=== PATIENT | female | born 1975 | race Caucasian/White ===

== ENCOUNTER 2016-07-05 11:47 | Inpatient (IN) | payer OTHER ==
[~2016-07-05] VITALS: Ht 157.5 cm; Wt 70.6 kg
[2016-07-05] VITALS (8 sets, daily range): BP systolic 108–121; BP diastolic 70–78; PULSE 72–102; RESP 14–18; TEMP 98.1; O2SAT 94–99
[~2016-07-05 11:47] MED LIST: DULO30 PO; HYDR-3535 PO; LEVO50TA4 PO; LURA120T PO; LYRI200C PO; MYCO500 PO; OXYB5TAB33 PO; PILO5 PO; RIVA20 PO
[2016-07-05] MEDS ORDERED: SODIUM CHLOR 0.9% 1000 ML INJ 1,000 ML IV SCH (12:09)
[2016-07-05] MEDS ORDERED: NALOXONE HCL 2 MG/2 ML VIAL IV ONE (12:15)
[2016-07-05] MEDS ORDERED: THIAMINE INJ 100 MG in SODIUM CHLORIDE 0.9% INJ 100 ML IV ONE (12:15)
[2016-07-05] MEDS ORDERED: DEXTROSE 50% IN WATER 50 ML VIAL(D50) IV PUSH ONE (12:15)
[2016-07-05] MEDS ORDERED: SODIUM CHLORIDE 0.9% FLUSH 10 ML FLUSH IVF PRN (12:15)
--- NOTE | 2016-07-05 12:31 | RADRPT ---
EXAM DATE/TIME: 07/05/2016 12:08 [place] COMPARISON: CHEST SINGLE AP, October 03, 2015, 15:56. INDICATIONS : Shortness of breath. MEDICAL HISTORY : Hypertension. Lupus. SURGICAL HISTORY : Port placement. ENCOUNTER: Initial ACUITY: 1 day PAIN SCORE: Non-responsive. LOCATION: Bilateral chest FINDINGS: A single view of the chest demonstrates hypoaerated without evidence of mass, infiltrate or effusion. Right-sided portacatheter unchanged. The cardiomediastinal contours are unremarkable. Osseous stru ctures are intact. CONCLUSION: No acute disease. Edu Lozano MD on July 05, 2016 at 12:28 Board Certified Radiologist. This report was verified electronically.
[2016-07-05 12:34] LABS: BLOOD GAS BASE EXCESS -3.1 mmol/L (-2-2); BLOOD GAS HCO3 22 mmol/L (22-26); BLOOD GAS METHEMOGLOBIN 0.7 % (0-2); BLOOD GAS O2 HGB SATURATION 96 % (90-100); BLOOD GAS OXYGEN CONTENT 17.6 Vol % (12.0-20.0); BLOOD GAS PCO2 40 mmHg (38-42); BLOOD GAS PO2 99 mmHG (61-120); CRITICAL VALUE NO; TEMP CORR TO 98.6
[2016-07-05 12:35] LABS: DRAW SITE RT RADIAL; LITER FLOW 2 L/M; NUMBER OF ARTERIAL PUNCTURES 1; OXYGEN DEVICE NASAL CANNULA; STAT NO; ULNAR PULSE PRESENT
--- NOTE | 2016-07-05 12:46 | PD ---
HPI Chief Complaint: Altered Mental Status Time Seen by Provider: 11:54 Travel History International Travel<30 days: No Contact w/Intl Traveler<30days: No Traveled to known affect area: No History of Present Illness HPI 40-year-old female arrives to the ER by EMS. She was found unresponsive at her residence. She evidently overdosed on Xanax and opioid analgesics taking an unknown quantity of pills over unknown period of time. EMS notes a GCS of 13. The respiratory rate was 10 with a carbon dioxide of 35, heart rate 98, blood pressure 105/64 blood sugar at 72 with an O2 sat of 93% on room air which improved to 99% on 2 L. The patient doesn't answer questions however she opens eyes to gentle noxious stimulus. 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) Bipolar Disorder: Yes Anxiety: No Depression: No Heart Rhythm Problems: Yes (TACHYCARDIA) Cancer: No Cardiovascular Problems: Yes High Cholesterol: Yes (HX OF) Chemotherapy: Yes (CYTOXIN 3-4 TX FINISHED FOR LUPUS) Chest Pain: No Congestive Heart Failure: No COPD: No Cerebrovascular Accident: Yes (LAST STROKE WAS 2006) Diabetes: No Diminished Hearing: No Deep Vein Thrombosis: Yes (LLE) Endocrine: Yes Gastrointestinal Disorders: Yes GERD: Yes Genitourinary: Yes Headaches: Yes Hepatitis: No Hiatal Hernia: No Hypertension: No Immune Disorder: Yes (LUPUS) Implanted Vascular Access Dvce: Yes Kidney Stones: Yes Medical other: Yes (STROKE) Musculoskeletal: Yes (FIBROMYALGIA, OSTEOPENIA) Neurologic: Yes (LEFT SIDED DEFICITS FROM PREVIOUS STROKE) Psychiatric: Yes (BI-POLAR) Reproductive: No Respiratory: Yes (PE) Immunizations Current: Yes Migraines: No Myocardial Infarction: No Radiation Therapy: No Renal Failure: Yes (STAGE 3 RENAL DISEASE BL) Seizures: No Sleep Apnea: No Thyroid Disease: Yes (HYPOTHYROIDSM ) Ulcer: No PNEUMOCCOCAL Vaccine (Year): 3 ?: Not Menopausal: Yes : 1 Para: 1 Tubal Ligation: Yes (2005) Past Surgical History Abdominal Surgery: Yes (APPENDECTOMY ) AICD: No Appendectomy: Yes Arteriovenous Shunt: No Body Medical Devices: [id number] Cardiac Surgery: No Section: Yes (1995) Cholecystectomy: No Ear Surgery: No Endocrine Surgery: No Eye Surgery: No Genitourinary Surgery: No Gynecologic Surgery: Yes (RIGHT OVARY REMOVAL, C SECTION) Insulin Pump: No Joint Replacement: No Neurologic Surgery: No Oral Surgery: No Pacemaker: No Thoracic Surgery: No Other Surgery: Yes (PORT PLACED AND REMOVED, new port placed 2012.) Social History Alcohol Use: Yes (SOCIALLY) Tobacco Use: No Substance Use: No Allergies-Medications (Allergen,Severity, Reaction): Coded Allergies: Erythromycin (Verified Allergy, Severe, THROAT CLOSES AND RASH, 07/05/16) Penicillin (Verified Allergy, Severe, THROAT CLOSES ,SWELLING, 07/05/16) Sulfa (Verified Allergy, Severe, Swelling, RASH, 07/05/16) Baclofen (Verified Allergy, Intermediate, SLURRED SPEECH, 07/05/16) Keflex (Verified Adverse Reaction, Severe, WEAKNESS, 07/05/16) Reported Meds & Prescriptions Reported Meds & Active Scripts Active Reported Lortab (Hydrocodone-Acetaminophen) 10-325 Mg Tab 1 Tab PO BID PRN Aspirin Adult Low Strength (Aspirin) 81 Mg Tabdr 81 Mg PO DAILY Alprazolam 0.25 Mg Tab 0.25 Mg PO BID PRN Mycophenolate (Mycophenolate Mofetil) 500 Mg Tab 500 Mg PO BID Iron (Ferrous Sulfate) 325 Mg Tab 325 Mg PO DAILY Citracal + D3 Maximum (Calcium Citrate-Vitamin D) 315-250 Mg-Unit Tab 1-2 Tab PO BID Lyrica (Pregabalin) 200 Mg Cap 200 Mg PO TID Pilocarpine 5 Mg Tab 5 Mg PO TID Levothyroxine (Levothyroxine Sodium) 50 Mcg Tab 50 Mcg PO MOTUWETHFRSA Take 1 tablet (50mcg) daily Thursday thru Thursday Voltaren Topical (Diclofenac Topical) 1% Gel 1 Applic TOPICAL QID PRN Potassium Chloride ER (Potassium Chloride) 10 Meq Tab 10 Meq PO TID Cymbalta DR (Duloxetine HCl) 30 Mg Capdr 90 Mg PO DAILY Ditropan (Oxybutynin Chloride) 5 Mg Tab 5 Mg PO TID PRN Seroquel (Quetiapine Fumarate) 25 Mg Tab 25 Mg PO HS Xarelto (Rivaroxaban) 20 Mg Tab 20 Mg PO DAILY Review of Systems ROS Limitations: Clinical Condition Physical Exam Narrative GENERAL: 40-year-old female well-nourished well-developed, minimally responsive , GCS is 10 (motor 6, eyes 3, verbal 1) SKIN: Focused skin assessment warm/dry. HEAD: Atraumatic. Normocephalic. EYES: Pupils are 4 mm. They're reactive to light.. ENT: No nasal bleeding or discharge. Mucous membranes pink and moist. NECK: Trachea midline. No JVD. CARDIOVASCULAR: Regular rate and rhythm. No murmur appreciated. RESPIRATORY: No accessory muscle use. Clear to auscultation. Breath sounds equal bilaterally. GASTROINTESTINAL: Abdomen soft, non-tender, nondistended. Hepatic and splenic margins not palpable. MUSCULOSKELETAL: No obvious deformities. No clubbing. No cyanosis. There is contraction deformity of the left upper extremity at the shoulder and elbow. NEUROLOGICAL: GCS 10. Left-sided weakness is observed on cranial nerve exam. There is also weakness in the left upper extremities due to old stroke. PSYCHIATRIC: Unclear if the patient overdosed as a suicide attempt as she does not answer questions. Data Data Last Documented VS Vital Signs Date Time Temp Pulse Resp B/P Pulse Ox O2 Delivery O2 Flow Rate FiO2 07/05/16 12:35 94 16 109/78 97 Nasal Cannula 2 07/05/16 12:01 98.1 Vital signs reviewed Orders Electrocardiogram (07/05/16 12:09) Ammonia (07/05/16 12:09) Complete Blood Count With Diff (07/05/16 12:09) Comprehensive Metabolic Panel (07/05/16 12:09) Thyroid Stimulating Hormone (07/05/16 12:09) Arterial Blood Gas (Abg) (07/05/16 12:09) Chest, Single Ap (07/05/16 12:09) Blood Glucose (07/05/16 12:09) Ecg Monitoring (07/05/16 12:09) Iv Access Insert/Monitor (07/05/16 12:09) Cath For Specimen (07/05/16 12:09) Oximetry (07/05/16 12:09) Dextrose 50% In Jermaine (Vial) Inj (D50w (Vi (07/05/16 12:15) Naloxone Inj (Narcan Inj) (07/05/16 12:15) Sodium Chloride 0.9% Flush (Ns Flush) (07/05/16 12:15) Sodium Chlor 0.9% 1000 Ml Inj (Ns 1000 M (07/05/16 12:09) Thiamine Inj (Thiamine Inj) (07/05/16 12:15) Drug Screen, Random Urine (07/05/16 12:09) Alcohol (Ethanol) (07/05/16 12:09) Salicylates (Aspirin) (07/05/16 12:09) Tylenol (Acetaminophen) (07/05/16 12:09) Labs Laboratory Tests Test 07/05/16 07/05/16 07/05/16 07/05/16 12:24 12:40 13:00 13:40 Blood Gas Puncture Site RT RADIAL Blood Gas Patient Temperature 98.6 Blood Gas HCO3 22 mmol/L Blood Gas Base Excess -3.1 mmol/L Blood Gas Oxygen Saturation 96 % Arterial Blood pH 7.35 Arterial Blood Partial 40 mmHg Pressure CO2 Arterial Blood Partial 99 mmHG Pressure O2 Arterial Blood Oxygen Content 17.6 Vol % Arterial Blood 1.0 % Carboxyhemoglobin Arterial Blood Methemoglobin 0.7 % Blood Gas Hemoglobin 13.0 G/DL Oxygen Delivery Device NASAL CANNULA Blood Gas Liter Flow 2 L/M White Blood Count 4.6 TH/MM3 Red Blood Count 4.54 MIL/MM3 Hemoglobin 13.2 GM/DL Hematocrit 39.9 % Mean Corpuscular Volume 87.9 FL Mean Corpuscular Hemoglobin 29.0 PG Mean Corpuscular Hemoglobin 33.0 % Concent Red Cell Distribution Width 13.6 % Platelet Count 204 TH/MM3 Mean Platelet Volume 8.6 FL Neutrophils (%) (Auto) 74.0 % Lymphocytes (%) (Auto) 20.0 % Monocytes (%) (Auto) 5.1 % Eosinophils (%) (Auto) 0.2 % Basophils (%) (Auto) 0.7 % Neutrophils # (Auto) 3.4 TH/MM3 Lymphocytes # (Auto) 0.9 TH/MM3 Monocytes # (Auto) 0.2 TH/MM3 Eosinophils # (Auto) 0.0 TH/MM3 Basophils # (Auto) 0.0 TH/MM3 CBC Comment DIFF FINAL Differential Comment Sodium Level 139 MEQ/L Potassium Level 4.1 MEQ/L Chloride Level 105 MEQ/L Carbon Dioxide Level 23.4 MEQ/L Anion Gap 11 MEQ/L Blood Urea Nitrogen 13 MG/DL Creatinine 1.26 MG/DL Estimat Glomerular Filtration 47 ML/MIN Rate Random Glucose 76 MG/DL Calcium Level 9.7 MG/DL Total Bilirubin 0.7 MG/DL Aspartate Amino Transf 14 U/L (AST/SGOT) Alanine Aminotransferase 15 U/L (ALT/SGPT) Alkaline Phosphatase 74 U/L Total Protein 8.0 GM/DL Albumin 4.2 GM/DL Thyroid Stimulating Hormone 0.738 uIU/ML 3rd Gen Salicylates Level LESS THAN 1.7 MG/DL Acetaminophen Level LESS THAN 2.0 MCG/ML Ethyl Alcohol Level LESS THAN 3 MG/DL Urine Opiates Screen POS Urine Barbiturates Screen NEG Urine Amphetamines Screen NEG Urine Benzodiazepines Screen POS Urine Cocaine Screen NEG Urine Cannabinoids Screen NEG Ammonia 15 MCMOL/L MDM Medical Decision Making Medical Screen Exam Complete: Yes Emergency Medical Condition: Yes Medical Record Reviewed: Yes Differential Diagnosis Altered mental status/psychosis due to infection/environmental exposure/ metabolic abnormality, polypharmacy, alcohol abuse/intoxication, illicit or prescribed drug abuse, malingering/secondary gain, non-organic psychiatric disease Narrative Course CBC & BMP Diagram 07/05/16 12:40 LFTs normal Ammonia 15 TSH 0.7388 UTOX: positive for opiates, positive for benzodiazepines AB.35/40/22 abg PO2 100 on 2LNC The nurse reports the patient has been speaking at various times throughout her ER course. At time she has her eyes open and closes them when someone enters the room. The sitter reported same thing. Upon speaking with the patient at 2: 50 PM her speech was normal and she stated she was unsure where she was. Pt stated to sitter she did not know where she was. Her airway has been patent throughout her ER stay and her vital signs have been normal. The presentation is considered compatible with a benzodiazepine and opioid mixed toxidrome. Diagnosis Primary Impression: Benzodiazepine overdose of undetermined intent Qualified Code: T42.4X4A - Benzodiazepine overdose of undetermined intent, initial encounter Additional Impression: Opioid overdose Qualified Code: T40.2X4A - Opioid overdose, undetermined intent, initial encounter Sanket Bunn MD July 05, 2016 12:45
[2016-07-05] MEDS ORDERED: OXYB5TAB10 PO (13:12)
[2016-07-05] MEDS ORDERED: LYRI200C PO (13:12)
[2016-07-05] MEDS ORDERED: PILO5TAB3 PO (13:12)
[2016-07-05] MEDS ORDERED: CYMB30CA PO (13:12)
[2016-07-05] MEDS ORDERED: ASPI1TAB91 PO (13:12)
[2016-07-05] MEDS ORDERED: HYDR-3535 PO (13:12)
[2016-07-05] MEDS ORDERED: FERR1TAB36 PO (13:12)
[2016-07-05] MEDS ORDERED: DICL1GEL TOPICAL (13:12)
[2016-07-05] MEDS ORDERED: SERO25TA PO (13:12)
[2016-07-05] MEDS ORDERED: ALPR0.25 PO (13:12)
[2016-07-05] MEDS ORDERED: POTA10TA2 PO (13:12)
[2016-07-05] MEDS ORDERED: XARE20TA PO (13:12)
[2016-07-05] MEDS ORDERED: CITRTAB7 PO (13:12)
[2016-07-05] MEDS ORDERED: MYCO500T PO (13:12)
[2016-07-05] MEDS ORDERED: LEVO50TA4 PO (13:12)
[2016-07-05 13:15] LABS: AUTOMATED NEUTROPHIL # 3.4 TH/MM3 (1.8-7.7); BASOPHIL % 0.7 % (0.0-2.0); EOSINOPHIL % 0.2 % (0.0-4.0); HEMATOCRIT 39.9 % (35.0-46.0); HEMO FLAGS DIFF FINAL; LYMPHOCYTE # 0.9 TH/MM3 (1.0-4.8); MEAN CELL VOLUME 87.9 FL (80.0-100.0); MONO % 5.1 % (0.0-8.0); PLATELET COUNT 204 TH/MM3 (150-450); RED BLOOD COUNT 4.54 MIL/MM3 (4.00-5.30); RED CELL DISTRIBUTION WIDTH 13.6 % (11.6-17.2); WHITE BLOOD COUNT 4.6 TH/MM3 (4.0-11.0)
[2016-07-05 13:19] LABS: AMPHETAMINE, URINE NEG (NEG); BARBITURATES, URINE NEG (NEG); COCAINE, URINE NEG (NEG)
[2016-07-05 13:22] LABS: ACETAMINOPHEN LESS THAN 2.0 MCG/ML (10.0-30.0); ALT (GPT) 15 U/L (10-53); ANION GAP 11 MEQ/L (5-15); AST (GOT) 14 U/L (15-37); BICARBONATE 23.4 MEQ/L (21.0-32.0); BLOOD UREA NITROGEN 13 MG/DL (7-18); CHLORIDE 105 MEQ/L (98-107); GLOMERULAR FILTRATION RATE 47 ML/MIN (>89); POTASSIUM 4.1 MEQ/L (3.5-5.1); SODIUM (NA) 139 MEQ/L (136-145)
[2016-07-05 13:31] LABS: ALKALINE PHOSPHATASE 74 U/L (45-117); TOTAL BILIRUBIN ADULT 0.7 MG/DL (0.2-1.0)
[2016-07-06 00:26] VITALS: BP 112/78; PULSE 79; RESP 16; O2SAT 95
[2016-07-06 02:26] VITALS: BP 141/78; PULSE 66; RESP 16; O2SAT 100
[2016-07-06 06:26] VITALS: BP 120/82; PULSE 77; RESP 18; O2SAT 97
[2016-07-06] MEDS ORDERED: MAGNESIUM HYDROXIDE SUSP 30 ML CUP PO PRN (13:15)
[2016-07-06] MEDS ORDERED: LORazepam 2 MG/ML VIAL - age > 65 yrs IM PRN (13:15)
[2016-07-06] MEDS ORDERED: LORazepam 0.5 MG TAB age > 65 yrs PO PRN (13:15)
[2016-07-06] MEDS ORDERED: ALUMINUM/MAGNESIUM/SIMETH 30 ML CUP PO PRN (13:15)
[2016-07-06] MEDS ORDERED: OXYBUTYNIN CHLORIDE 5 MG TAB PO PRN (13:30)
[2016-07-06] MEDS: NICOTINE 21 MG/24 HR PATCH T-DERMAL SCH (14:00)
--- NOTE | 2016-07-06 14:03 | MH ---
cc: JJJOSHUAROBERTA DATE OF ADMISSION: 07/06/2016 PRESENTING CHIEF COMPLAINT AND HISTORY OF PRESENT ILLNESS: This 40-year-old white female was brought to the emergency room this hospital under the [place] Act because of suspected overdose on Xanax and Lortab. She reportedly was found unresponsive at her residence. When evaluated the emergency room, she did not respond to questions. In the emergency room, she was evaluated by psychiatric screener and the case was discussed with me and it was felt she needed to be hospitalized for further assessment treatment. According to the psychiatric screener, she recently learned that her was having an extramarital affair and had recently moved out of the home. She got upset and overdosed on an unknown quantity of Xanax and opiates, i.e., hydrocodone. During this evaluation however, she denied entertaining any suicidal thoughts even though she had written notes to some family members / friends indicative of her desire to . She stated that she took only "a couple of Xanax and one pain pill" and denied this was a suicide attempt. She claimed that her mother who lives in [place] was the person who probably called her . She stated that she has a 20-year-old disabled daughter who lives with her. She also indicated that her 's new girlfriend had texted her stating that she needed to find a new hobby and to leave her alone. She stated that she had been to her , a precinct i police sergeant for the [employer], and everything between then changed since she had a stroke in 2006. During this evaluation, she also denied any previous suicide attempt. Prior to the evaluation, the case was discussed with the nursing staff on the unit who indicated that since admission she has been calm and cooperative though very focused on discharge and questioning the necessity of the [place] Act. She has not exhibited any aggressive or self-destructive behavior nor has she made any threats of harm to self or others since admission. At the time of this evaluation, Ms. Santiago was in a wheelchair and looked depressed. When asked about her understanding of the reason for this hospitalization, she responded "my is having an affair. We've been for 15 years. Things between us changed when I had the stroke ten years ago. Since then, he has become more of a caregiver than a . I did not overdose. I took maybe two or three Xanax 0.25 milligrams and one pain pill". She was unable to tell as to who brought her to the hospital. She acknowledged that she "passed out". She however repeatedly denied this was a suicide attempt. She denied any previous suicide attempts. She acknowledged feeling "kind of depressed" for the past two months. She denied any disturbance in her sleep but indicated her appetite had declined. She also indicated that since the stroke her memory and concentration had declined. On further direct questioning, she did not give any history suggestive of bipolar affective disorder. Further exploration revealed that she has been living with a 20-year-old daughter with cerebral palsy. They both have a PRODUCTION SPECIALIST assisting them with their activities of daily living. PAST PSYCHIATRIC HISTORY: She was first evaluated by a psychiatrist, Dr. Santillan, at [facility] about ten years or so ago for what she described as "depression." She was tried on several medications including Abilify, Latuda, et cetera. She stated the current medication, Cymbalta, is working well. Currently she is under the care of Dr. Pope. She was previously admitted to the psychiatric unit of [facility] about six years or so ago. That admission according to her was also precipitated by her feeling "depressed". PAST MEDICAL HISTORY: 1. She denied any history of diabetes, head injury or seizures. 2. She has a history of rheumatoid arthritis. 3. Lupus. 4. Status post cerebrovascular accident probably secondary to clotting state from the lupus. 5. History of tachycardia. 6. Hyperlipidemia. 7. She had recently finished chemotherapy with Cytoxan for lupus. 8. She has a history of deep venous thrombosis. 9. Gastroesophageal reflux disease (GERD). 10. Kidney stones. 11. Fibromyalgia. 12. Osteopenia. 13. Stage III renal disease. 14. Hypothyroidism. PAST SURGICAL HISTORY: 1. Appendectomy. 2. Lithotripsy. 3. section. ALLERGIES: 1. ERYTHROMYCIN. 2. PENICILLIN. 3. SULFA. 4. BACLOFEN. 5. KEFLEX. CURRENT MEDICATIONS: 1. Lortab 10/325 milligrams one tablet twice a day PRN. 2. Aspirin 81 milligrams daily. 3. Xanax 0.25 milligrams p.o. twice a day PRN. 4. Mycophenolate 500 milligrams twice a day. 5. Ferrous sulfate 325 milligrams daily. 6. Citracal plus D3 315 one to two tablets twice a day. 7. Lyrica 200 milligrams p.o. three times a day. 8. Pilocarpine 5 milligrams p.o. three times a day. 9. Synthroid 50 micrograms daily. 10. Voltaren Cream twice a day. 11. Potassium chloride 10 milligrams p.o. three times a day. The patient could not explain as to why she is taking the potassium. 12. Cymbalta 90 milligrams p.o. daily. 13. Ditropan 5 milligrams p.o. three times a day PRN. 14. Seroquel 25 milligrams at bedtime. 15. Xarelto 20 milligrams p.o. daily. FAMILY HISTORY: Her biological father when she was young. The mother remarried and the step-father when she was 11 years old. She has three brothers. No sisters. She denied any family history of psychiatric illness or substance abuse. PERSONAL AND SOCIAL HISTORY: She grew up in [place] and after finishing high school, attended two years of college. 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 She has been once to her current for 15 years. Her works as a precinct i police sergeant for the [employer]. As mentioned she has a 20-year-old daughter living with her who suffers from cerebral palsy. She denied any history of alcohol or drug abuse. She denied any history of physical or sexual trauma. She denied any history of involvement with the law. CLINICAL OBSERVATION AND MENTAL STATUS EXAMINATION: At the time of this evaluation, Ms. Santiago presented as a casually dressed reasonably well-groomed white female who looked her stated age. She was in a wheelchair. Overall cooperative, though very focused on discharge frequently emphasizing that her overdose was not a suicide attempt and that she engaged in his behavior out of anger and frustration. She insisted on discharge and repeatedly stating that her will be able to take care of her as he still comes around the house and takes care of her. In addition, she stated that there is a PRODUCTION SPECIALIST at home who can take care of her. She became tearful while describing her current state of affairs with her . She frequently stated that they have received marriage counseling in addition to her getting individual psychotherapy at [facility] and that outpatient services would be better for her. Speech: Coherent and appropriate.. Affect: Somewhat depressed, constricted. Subjectively she described her mood as, "I've been feeling depressed." Thought processes did not reveal any looseness of association or flight of ideas. No hong delusions, auditory or visual hallucinations were noticed or reported. As mentioned, she repeatedly denied any suicidal or homicidal ideations or intent at this time, "what I did was stupid. I didn't mean to hurt myself. I was just upset." She denied any previous suicide attempts. Cognitive functions: She was alert, oriented to place, person and situation. Memory: Immediate: She could do four digits forward, three digits backward. Recent: She could recall only one out of three objects after ten minutes. Remote: She could recall presidents up to President Marc Neal. Her attention and concentration was impaired. She could not do serial sevens at all. Her insight and judgment was felt to be fair. REVIEW OF SYSTEMS AND PHYSICAL EXAMINATION: not done as this has been done in the emergency room. She has left hemiparesis. DIAGNOSTIC IMPRESSION: AXIS I: Adjustment reaction with mixed emotional features. Possible dysthymic disorder. Status post overdose on Xanax and opiates. AXIS II: No diagnosis. AXIS III: Fibromyalgia and systemic lupus erythematosus, status post cerebrovascular accident resulting in his left hemiparesis, stage III renal disease, hypothyroidism, hyperlipidemia, history of deep vein thrombosis AXIS IV: Severity of psychosocial stressors, moderate, i.e., multiple medical issues, marital discord, daughter's disability. AXIS V: Current GAF score 40. FORMULATION AND TREATMENT PLAN: Based on this evaluation and the background information available to me at this time, Ms. Santiago is experiencing emotional distress due to the above-identified psychosocial stressors. In addition, she has experienced bouts of depression off and on. Currently she is experiencing a mild to moderate degree of depression compounded by the above-identified psychosocial stressors. As such, she will be maintained on the Cymbalta. The above-mentioned issues will be further explored and addressed in individual psychotherapy sessions. She will participate in various other unit activities i.e. occupational therapy, recreational therapy, group therapy. Medical consult will be requested for assistance in the management of her medical problems. It is not clear as to why she is taking the potassium supplements, and as such, this will be put on hold pending input from the manager medical device. Development Lead will be asked to assist in discharge planning. Her identified problems are: 1. Depression. 2. Current psychosocial stressors. Her assets are: She is verbal. Her estimated length of stay is three to five days. MD LISSETTE Dominguez/ADAM /1:08 PM /1:43 PM
[2016-07-06 14:14] VITALS: BP 113/77; PULSE 100; RESP 16; O2SAT 100
--- NOTE | 2016-07-06 15:01 | EKG ---
Date Performed: 07/05/2016 Time Performed: 12:12:13 PTAGE: 40 years EKG: Sinus rhythm MARKED RIGHT AXIS DEVIATION NONSPECIFIC T-WAVE ABNORMALITY Patient has an S1 Q3 T3 pattern, which is consistant with Pulmonary embolous. Clinical corrolation would be advised. When compared to previous tracing, there has been an increase in The anterolateral ST-T wave changes and a rightward shift in [place]. ABNORMAL ECG PREVIOUS TRACING : 10/03/2015 22.16 DOCTOR: Rose Yeh Interpretating Date/Time 07/06/2016 15:00:03
--- NOTE | 2016-07-06 17:31 | PD.CONS ---
HPI Service [facility] Hospitalists Consult Requested By Dr. 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 Patient is now admitted to the psychiatric unit of [facility] for overdose. Medical team as consult to to assist with chronic medical illnesses. Review of Systems Constitutional: DENIES: Diaphoretic episodes, Fatigue, Fever, Weight gain, Weight loss, Chills, Dizziness, Change in appetite, Night Sweats Endocrine: DENIES: Abnorml menstrual pattern, Heat/cold intolerance, Polydipsia , Polyuria, Polyphagia Eyes: DENIES: Blurred vision, Diplopia, Eye inflammation, Eye pain, Vision loss , Photosensitivity, Double Vision Ears, nose, mouth, throat: DENIES: Tinnitus, Hearing loss, Vertigo, Nasal discharge, Oral lesions, Throat pain, Hoarseness, Ear Pain, Running Nose, Epistaxis, Sinus Pain, Toothache, Odynophagia Respiratory: DENIES: Apneas, Cough, Snoring, Wheezing, Hemoptysis, Sputum production, Shortness of breath Cardiovascular: DENIES: Chest pain, Palpitations, Syncope, Dyspnea on Exertion , PND, Lower Extremity Edema, Orthopnea, Claudication Gastrointestinal: DENIES: Abdominal pain, Black stools, Bloody stools, BRB per rectum, Constipation, Diarrhea, GERD, Nausea, Reflux, Vomiting, Difficulty Swallowing, Anorexia Genitourinary: DENIES: Urinary frequency, Urinary incontinence, Urgency, Hematuria, Dysuria, Nocturia Musculoskeletal: DENIES: Joint pain, Muscle aches, Stiffness, Joint Swelling, Back pain, Neck pain Integumentary: DENIES: Abnormal pigmentation, Pruritus, Rash, Nail changes, Breast masses, Breast skin changes, Nipple discharge Hematologic/lymphatic: DENIES: Bruising, Lymphadenopathy Immunologic/allergic: DENIES: Eczema, Urticaria Neurologic: DENIES: Abnormal gait, Headache, Localized weakness, Paresthesias, Seizures, Speech Problems, Tremor, Poor Balance Psychiatric: COMPLAINS OF: Anxiety, Depression, History of Bipolar, DENIES: Confusion, Mood changes, Hallucinations, Agitation, Suicidal Ideation, Homicidal Ideation, Delusions, History of Schizophrenia Past Family Social History Past Medical History 1) lupus, with history of lupus cerebritis 2) rheumatoid arthritis 3) Raynaud's phenomenon 4) Sjogren's syndrome 5) right MCA CVA with left hemiparesis in 2006 6) history of DVT and pulmonary emboli in 2002 7) nephrolithiasis 8) bipolar/depression/anxiety 9) hypothyroidism 10) fibromyalgia 11) osteopenia 12) chronic kidney disease, stage III 13) GERD Past Surgical History 1. History of Appendectomy 2. History of Arthroscopy Knee 3. History of Bronchoscopy (Diagnostic) 4. History of Section 5. History of Complete Colonoscopy 6. History of Cystoscopy With Insertion Of Ureteral Stent 7. History of Diagnostic Esophagogastroduodenoscopy 8. History of Inj Of Subst Other Than Anes/Contrast/Neurol Solns Epidural 9. History of Interruption Inferior Vena Cava Angelina Filter Placement 10. History of Knee Surgery 11. History of Lithotripsy - Whole Body (Extracorporeal Shock Wave) 12. History of Oophorectomy 13. History of Oral Surgery Tooth Extraction 14. History of Percutaneous Portal Vein Catheter Placement 15. History of Shoulder Arthroplasty Reported Medications Reported Meds & Active Scripts Active Reported Lortab (Hydrocodone-Acetaminophen) 10-325 Mg Tab 1 Tab PO BID PRN Aspirin Adult Low Strength (Aspirin) 81 Mg Tabdr 81 Mg PO DAILY Alprazolam 0.25 Mg Tab 0.25 Mg PO BID PRN Mycophenolate (Mycophenolate Mofetil) 500 Mg Tab 500 Mg PO BID Iron (Ferrous Sulfate) 325 Mg Tab 325 Mg PO DAILY Citracal + D3 Maximum (Calcium Citrate-Vitamin D) 315-250 Mg-Unit Tab 1-2 Tab PO BID Lyrica (Pregabalin) 200 Mg Cap 200 Mg PO TID Pilocarpine 5 Mg Tab 5 Mg PO TID Levothyroxine (Levothyroxine Sodium) 50 Mcg Tab 50 Mcg PO MOTUWETHFRSA Take 1 tablet (50mcg) daily Thursday thru Thursday Voltaren Topical (Diclofenac Topical) 1% Gel 1 Applic TOPICAL QID PRN Potassium Chloride ER (Potassium Chloride) 10 Meq Tab 10 Meq PO TID Cymbalta DR (Duloxetine HCl) 30 Mg Capdr 90 Mg PO DAILY Ditropan (Oxybutynin Chloride) 5 Mg Tab 5 Mg PO TID PRN Seroquel (Quetiapine Fumarate) 25 Mg Tab 25 Mg PO HS Xarelto (Rivaroxaban) 20 Mg Tab 20 Mg PO DAILY Allergies: Coded Allergies: Erythromycin (Verified Allergy, Severe, THROAT CLOSES AND RASH, 07/05/16) Penicillin (Verified Allergy, Severe, THROAT CLOSES ,SWELLING, 07/05/16) Sulfa (Verified Allergy, Severe, Swelling, RASH, 07/05/16) Baclofen (Verified Allergy, Intermediate, SLURRED SPEECH, 07/05/16) Keflex (Verified Adverse Reaction, Severe, WEAKNESS, 07/05/16) Family History She has 2 brothers with coronary artery disease. They both had myocardial infarctions in their early 40s and had stents placed Social History - but recently - Disabled secondary to CVA - Occasional alcoholic beverage - No tobacco - No illicit street drugs Physical Exam Vital Signs Vital Signs Date Time Temp Pulse Resp B/P Pulse Ox O2 Delivery O2 Flow Rate FiO2 07/06/16 14:14 100 16 113/77 100 07/06/16 06:26 77 18 120/82 97 07/06/16 02:26 66 16 141/78 100 07/06/16 00:26 79 16 112/78 95 Room Air 07/05/16 20:27 72 16 109/71 94 Room Air 07/05/16 20:27 73 16 109/71 94 Room Air 07/05/16 20:03 73 16 108/70 98 Nasal Cannula 2 07/05/16 17:30 90 16 121/75 98 Nasal Cannula 2 Physical Exam GENERAL: This is a well-nourished, well-developed patient, in no apparent distress. SKIN: No rashes, ecchymoses or lesions. Cool and dry. HEAD: Atraumatic. Normocephalic. No temporal or scalp tenderness. EYES: Pupils equal round and reactive. Extraocular motions intact. No scleral icterus. No injection or drainage. ENT: Nose without bleeding, purulent drainage or septal hematoma. Throat without erythema, tonsillar hypertrophy or exudate. Uvula midline. Airway patent. NECK: Trachea midline. No JVD or lymphadenopathy. Supple, nontender, no meningeal signs. CARDIOVASCULAR: Regular rate and rhythm without murmurs, gallops, or rubs. RESPIRATORY: Clear to auscultation. Breath sounds equal bilaterally. No wheezes , rales, or rhonchi. GASTROINTESTINAL: Abdomen soft, non-tender, nondistended. No hepato-splenomegaly , or palpable masses. No guarding. MUSCULOSKELETAL: Extremities without clubbing, cyanosis, or edema. No joint tenderness, effusion, or edema noted. No calf tenderness. Negative Homans sign bilaterally. NEUROLOGICAL: Awake and alert. significant deficit at LUE, pt is unable to flex/ or extend at the elbow. Pt usually ambulates with the use of a LLE ankle brace. Result Diagram: 07/05/16 1240 07/05/16 1240 Imaging Last Impressions Chest X-Ray 07/05/16 1209 Signed Impressions: Service Date/Time: Tuesday, July 05, 2016 12:08 - CONCLUSION: No acute disease. Edu Lozano MD Assessment and Plan Problem List: (1) Benzodiazepine overdose of undetermined intent Status: Acute Plan: - mgmt per Psychiatry (2) Opioid overdose Status: Acute Plan: - Mgmt per Psychiatry (3) Hypothyroidism Status: Acute Plan: - synthroid (4) Systemic lupus erythematosus Status: Acute Plan: - xarelto, cellcept, - pt follows with rheumatology - Pt has followed with Dr. Alvarez, last rheumotology note in [facility] EHR is from per pt she still follows with Dr. Alvarez and had last anointment only a few weeks ago (5) History of CVA (cerebrovascular accident) Status: Acute Plan: - PT eval - xarelto Problem Qualifiers (1) Benzodiazepine overdose of undetermined intent: Qualified Code: T42.4X4A - Benzodiazepine overdose of undetermined intent, initial encounter (2) Opioid overdose: Qualified Code: T40.2X4A - Opioid overdose, undetermined intent, initial encounter Jayden Wall DO July 06, 2016 17:30
[2016-07-06] MEDS: PILOCARPINE HCL 5 MG TAB PO SCH (17:45)
[2016-07-06] MEDS: PREGABALIN 100 MG CAP PO SCH (17:46)
[2016-07-06] MEDS: VOLTAREN 1% TOPICAL SCH ×2 (18:00→21:00)
[2016-07-06] MEDS: REMOVE OLD NICOTINE PATCH T-DERMAL SCH (21:00)
[2016-07-06] MEDS: CALCIUM/VITAMIN D 250 MG/125 U TAB PO SCH (21:37)
[2016-07-06] MEDS: MYCOPHENOLATE MOFETIL 500 MG TAB PO SCH (21:37)
[2016-07-06] MEDS: QUEtiapine FUMARATE 25 MG TAB PO SCH (21:38)
[2016-07-07 05:35] VITALS: BP 110/71; PULSE 98; RESP 18; TEMP 97.9
[2016-07-07] MEDS: LEVOTHYROXINE SODIUM 50 MCG TAB PO SCH (06:00)
[2016-07-07 08:27] LABS: ALKALINE PHOSPHATASE 73 U/L (45-117); ALT (GPT) 15 U/L (10-53); ANION GAP 8 MEQ/L (5-15); AST (GOT) 12 U/L (15-37); BICARBONATE 24.7 MEQ/L (21.0-32.0); BLOOD UREA NITROGEN 14 MG/DL (7-18); CHLORIDE 108 MEQ/L (98-107); FREE T4 1.35 NG/DL (0.76-1.46); GLOMERULAR FILTRATION RATE 51 ML/MIN (>89); HDL CHOLESTEROL 51.9 MG/DL (40.0-60.0); LDL CHOLESTEROL 57 MG/DL (0-99); POTASSIUM 4.5 MEQ/L (3.5-5.1); SODIUM (NA) 141 MEQ/L (136-145); TOTAL BILIRUBIN ADULT 0.8 MG/DL (0.2-1.0)
[2016-07-07] MEDS: NICOTINE 21 MG/24 HR PATCH T-DERMAL SCH (08:55)
[2016-07-07] MEDS: MYCOPHENOLATE MOFETIL 500 MG TAB PO SCH ×2 (08:55→21:00)
[2016-07-07] MEDS: PILOCARPINE HCL 5 MG TAB PO SCH ×3 (08:56→17:57)
[2016-07-07] MEDS: CALCIUM/VITAMIN D 250 MG/125 U TAB PO SCH ×2 (08:56→21:00)
[2016-07-07] MEDS: ASPIRIN EC 81 MG TABEC PO SCH (08:56)
[2016-07-07] MEDS: RIVAROXABAN 20 MG TAB PO SCH (08:56)
[2016-07-07] MEDS: FERROUS SULFATE 325 MG (65 MG ELEMENTAL IRON) TAB PO SCH (08:56)
[2016-07-07] MEDS: DULoxetine HCl DR 30 MG CAP PO SCH (08:56)
[2016-07-07] MEDS: VOLTAREN 1% TOPICAL SCH ×4 (08:57→21:00)
[2016-07-07] MEDS: PREGABALIN 100 MG CAP PO SCH ×3 (08:57→17:57)
[2016-07-07] MEDS ORDERED: PNEUMOCOCCAL POLYVALENT INJ 25 MCG/0.5 ML SYR IM ONE (10:00)
[2016-07-07 19:47] VITALS: BP 121/68; PULSE 109; RESP 17; TEMP 97.5; O2SAT 100
[2016-07-07] MEDS: REMOVE OLD NICOTINE PATCH T-DERMAL SCH (21:00)
[2016-07-07] MEDS: QUEtiapine FUMARATE 25 MG TAB PO SCH (21:00)
[2016-07-08 05:17] VITALS: BP 147/70; PULSE 92; RESP 16; TEMP 97.5; O2SAT 95
[2016-07-08] MEDS: LEVOTHYROXINE SODIUM 50 MCG TAB PO SCH (05:35)
[2016-07-08] MEDS: VOLTAREN 1% TOPICAL SCH ×4 (09:00→21:00)
[2016-07-08] MEDS: CALCIUM/VITAMIN D 250 MG/125 U TAB PO SCH ×2 (09:00→21:05)
[2016-07-08] MEDS: RIVAROXABAN 20 MG TAB PO SCH (09:03)
[2016-07-08] MEDS: ASPIRIN EC 81 MG TABEC PO SCH (09:03)
[2016-07-08] MEDS: FERROUS SULFATE 325 MG (65 MG ELEMENTAL IRON) TAB PO SCH (09:03)
[2016-07-08] MEDS: PREGABALIN 100 MG CAP PO SCH ×5 (09:03→16:58)
[2016-07-08] MEDS: PILOCARPINE HCL 5 MG TAB PO SCH ×3 (09:03→16:59)
[2016-07-08] MEDS: MYCOPHENOLATE MOFETIL 500 MG TAB PO SCH ×2 (09:03→21:05)
[2016-07-08] MEDS: DULoxetine HCl DR 30 MG CAP PO SCH (09:03)
[2016-07-08] MEDS: NICOTINE 21 MG/24 HR PATCH T-DERMAL SCH (09:04)
[2016-07-08] MEDS: ARIPiprazole 5 MG TAB PO SCH (13:15)
[2016-07-08 19:39] VITALS: BP 127/61; PULSE 99; RESP 16; TEMP 97.8
[2016-07-08] MEDS: REMOVE OLD NICOTINE PATCH T-DERMAL SCH (21:00)
[2016-07-09] MEDS: LEVOTHYROXINE SODIUM 50 MCG TAB PO SCH (05:27)
[2016-07-09 05:43] VITALS: BP 114/55; PULSE 105; RESP 16; TEMP 98.8; O2SAT 95
[2016-07-09] MEDS: VOLTAREN 1% TOPICAL SCH ×4 (09:00→21:00)
[2016-07-09] MEDS: RIVAROXABAN 20 MG TAB PO SCH (09:00)
[2016-07-09] MEDS: NICOTINE 21 MG/24 HR PATCH T-DERMAL SCH (09:00)
[2016-07-09] MEDS: PILOCARPINE HCL 5 MG TAB PO SCH ×3 (09:00→16:46)
[2016-07-09] MEDS: ASPIRIN EC 81 MG TABEC PO SCH (09:25)
[2016-07-09] MEDS: ARIPiprazole 5 MG TAB PO SCH (09:25)
[2016-07-09] MEDS: MYCOPHENOLATE MOFETIL 500 MG TAB PO SCH ×2 (09:25→21:33)
[2016-07-09] MEDS: FERROUS SULFATE 325 MG (65 MG ELEMENTAL IRON) TAB PO SCH (09:25)
[2016-07-09] MEDS: CALCIUM/VITAMIN D 250 MG/125 U TAB PO SCH ×2 (09:26→21:33)
[2016-07-09] MEDS: DULoxetine HCl DR 30 MG CAP PO SCH (09:26)
[2016-07-09 16:00] VITALS: BP 119/81; PULSE 106; RESP 16; TEMP 98.2; O2SAT 98
[2016-07-09] MEDS: PREGABALIN 100 MG CAP PO SCH (16:46)
[2016-07-09] MEDS: REMOVE OLD NICOTINE PATCH T-DERMAL SCH (21:00)
[2016-07-10] MEDS: LEVOTHYROXINE SODIUM 50 MCG TAB PO SCH (05:07)
[2016-07-10 05:30] VITALS: BP 104/61; PULSE 111; RESP 20; TEMP 98.4
[2016-07-10] MEDS: VOLTAREN 1% TOPICAL SCH ×4 (09:00→20:09)
[2016-07-10] MEDS: NICOTINE 21 MG/24 HR PATCH T-DERMAL SCH (09:00)
[2016-07-10] MEDS: ASPIRIN EC 81 MG TABEC PO SCH (09:00)
[2016-07-10] MEDS: PILOCARPINE HCL 5 MG TAB PO SCH ×3 (09:43→18:00)
[2016-07-10] MEDS: ARIPiprazole 5 MG TAB PO SCH (09:43)
[2016-07-10] MEDS: DULoxetine HCl DR 30 MG CAP PO SCH (09:44)
[2016-07-10] MEDS: PREGABALIN 100 MG CAP PO SCH ×3 (09:44→18:10)
[2016-07-10] MEDS: MYCOPHENOLATE MOFETIL 500 MG TAB PO SCH ×2 (09:44→20:09)
[2016-07-10] MEDS: CALCIUM/VITAMIN D 250 MG/125 U TAB PO SCH ×2 (09:44→20:09)
[2016-07-10] MEDS: FERROUS SULFATE 325 MG (65 MG ELEMENTAL IRON) TAB PO SCH (09:44)
[2016-07-10] MEDS: REMOVE OLD NICOTINE PATCH T-DERMAL SCH (09:49)
[2016-07-10] MEDS: RIVAROXABAN 20 MG TAB PO SCH (09:55)
[2016-07-10 17:56] VITALS: BP 127/89; PULSE 95; RESP 19; TEMP 97.6; O2SAT 95
[2016-07-11] MEDS: LEVOTHYROXINE SODIUM 50 MCG TAB PO SCH (05:36)
[2016-07-11 05:45] VITALS: BP 104/69; PULSE 120; RESP 17; TEMP 98.6; O2SAT 94
[2016-07-11] MEDS: NICOTINE 21 MG/24 HR PATCH T-DERMAL SCH (09:00)
[2016-07-11] MEDS: VOLTAREN 1% TOPICAL SCH ×4 (09:00→21:00)
[2016-07-11] MEDS: ASPIRIN EC 81 MG TABEC PO SCH (09:00)
[2016-07-11] MEDS: MYCOPHENOLATE MOFETIL 500 MG TAB PO SCH ×2 (09:16→18:00)
[2016-07-11] MEDS: DULoxetine HCl DR 30 MG CAP PO SCH (09:16)
[2016-07-11] MEDS: PREGABALIN 100 MG CAP PO SCH ×3 (09:16→18:00)
[2016-07-11] MEDS: FERROUS SULFATE 325 MG (65 MG ELEMENTAL IRON) TAB PO SCH (09:17)
[2016-07-11] MEDS: PILOCARPINE HCL 5 MG TAB PO SCH ×3 (09:17→18:00)
[2016-07-11] MEDS: CALCIUM/VITAMIN D 250 MG/125 U TAB PO SCH ×2 (09:17→21:00)
[2016-07-11] MEDS: ARIPiprazole 5 MG TAB PO SCH (09:17)
[2016-07-11] MEDS: REMOVE OLD NICOTINE PATCH T-DERMAL SCH (09:20)
[2016-07-11] MEDS: RIVAROXABAN 20 MG TAB PO SCH (09:23)
[2016-07-11] MEDS: ACETAMINOPHEN 325 MG TAB PO PRN (16:39)
[2016-07-11 17:42] VITALS: BP 118/67; PULSE 110; RESP 16; TEMP 98.4; O2SAT 95
[2016-07-11] MEDS ORDERED: FERR325T PO (17:58)
[2016-07-11] MEDS ORDERED: LYRI100C PO (17:58)
[2016-07-11] MEDS ORDERED: MYCO500 PO (17:58)
[2016-07-11] MEDS ORDERED: OYST250T4 PO (17:58)
[2016-07-11] MEDS ORDERED: DULO1CAP2 PO (17:58)
[2016-07-11] MEDS ORDERED: XARE20TA PO (17:58)
[2016-07-11] MEDS ORDERED: LEVO.05 PO (17:58)
[2016-07-11] MEDS ORDERED: PILO5 PO (17:58)
[2016-07-11] MEDS ORDERED: OXYB5TAB10 PO (17:58)
[2016-07-11] MEDS ORDERED: ARIP1TAB11 PO (17:58)
[2016-07-11] MEDS ORDERED: ASPI81TA11 PO (17:58)
[2016-07-12 05:30] VITALS: BP 95/51; PULSE 113; RESP 16; TEMP 97.8; O2SAT 95
[2016-07-12] MEDS: LEVOTHYROXINE SODIUM 50 MCG TAB PO SCH (06:00)
[2016-07-12] MEDS: MYCOPHENOLATE MOFETIL 500 MG TAB PO SCH (06:00)
[2016-07-12] MEDS: ASPIRIN EC 81 MG TABEC PO SCH (08:45)
[2016-07-12] MEDS: ARIPiprazole 5 MG TAB PO SCH (08:46)
[2016-07-12] MEDS: FERROUS SULFATE 325 MG (65 MG ELEMENTAL IRON) TAB PO SCH (08:46)
[2016-07-12] MEDS: PILOCARPINE HCL 5 MG TAB PO SCH ×2 (08:46→13:30)
[2016-07-12] MEDS: PREGABALIN 100 MG CAP PO SCH ×2 (08:46→13:30)
[2016-07-12] MEDS: DULoxetine HCl DR 30 MG CAP PO SCH (08:46)
[2016-07-12] MEDS: CALCIUM/VITAMIN D 250 MG/125 U TAB PO SCH (08:46)
[2016-07-12] MEDS: NICOTINE 21 MG/24 HR PATCH T-DERMAL SCH (08:46)
[2016-07-12] MEDS: RIVAROXABAN 20 MG TAB PO SCH (08:46)
[2016-07-12] MEDS: ACETAMINOPHEN 325 MG TAB PO PRN (08:47)
[2016-07-12] MEDS: VOLTAREN 1% TOPICAL SCH ×2 (09:00→13:00)
--- NOTE | 2016-07-14 09:00 | MD ---
cc: ROBERTA BISHOP ADMISSION DATE: 07/06/2016 DISCHARGE DATE: 07/12/2016 ADMISSION DIAGNOSIS: AXIS I: Adjustment reaction with mixed emotional features. Possible dysthymic disorder. Status post overdose of Xanax and opiates. AXIS II: No diagnosis. AXIS III: Fibromyalgia. Systemic lupus erythematosus. Status post cerebrovascular accident resulting in left hemiparesis. Stage III renal disease. Hypothyroidism. Hyperlipidemia. History of deep vein thrombosis. AXIS IV: Severity of psychosocial stressors moderate i.e. multiple medical issues, marital and marital discord, daughter's disability. AXIS V: Current GAF score 40. DISCHARGE DIAGNOSIS: AXIS I: Adjustment reaction with mixed emotional features. Dysthymic disorder. Status post overdose of Xanax and opiates. AXIS II: No diagnosis. AXIS III: Fibromyalgia. Systemic lupus erythematosus. Status post cerebrovascular accident resulting in left hemiparesis. Stage III renal disease. Hypothyroidism. Hyperlipidemia. History of deep vein thrombosis. AXIS IV: Severity of psychosocial stressors moderate i.e. multiple medical issues, marital and marital discord, daughter's disability. AXIS V: Current GAF score 60. BRIEF HISTORY: This 40-year-old white female was brought to the emergency room of this hospital under the Lara Act because of a suspected overdose on Xanax and Lortab. She was found unresponsive at her residence. Please refer to my initial evaluation for details. LABORATORY WORKUP: CBC with differential unremarkable. CMP on 07/05 unremarkable. T4, TSH was normal. Her serum creatinine on 07/05 was 1.26 and repeated on 07/07 was 1.17 and her GFR on 07/07 was 51. Urine drug screen positive for opiates and benzodiazepines. Blood alcohol level less than 3. Acetaminophen and salicylate levels were normal. A chest x-ray unremarkable. HOSPITAL COURSE: When initially evaluated, she looked somewhat depressed and angry. She acknowledged overdosing but denied it was a suicide attempt. She however admitted to being distressed by the fact that her of 15 years had recently left and was dating another woman. Another stressor identified was her 20-year-old daughter who suffers from cerebral palsy and she is a caregiver for her. These issues were further addressed in individual psychotherapy sessions. I had a telephone conversation with her and he indicated that even though he was very supportive of her, he had decided to move out and live his own life. The patient as well as the both acknowledged that their relationship was one of the patient and caregiver and there was no intimacy. The seemed very supportive and caring and indicated his desire to stay involved in her life and help her in any way he could. He was invited to the treatment team meeting and he again emphasized that he will continue to assist the patient and her daughter financially as well as emotionally and in any other way. This was quite reassuring to the patient. We also discussed placement in an assisted living facility to which the patient as well as the were not very supportive. The alleviate her depression, she was maintained on Cymbalta and a small dose of Ativan was added to reduce her anxiety level. Later on, Abilify was added. Gradually her depression began to lift with the therapeutic interventions and change in the medication regimen. In the treatment team meeting two days ago she was very spontaneous and seemed animated, an observation also shared by her . At times, she was even jovial. It should be mentioned that throughout this hospital stay, she has expressed remorse at her suicidal behavior and insisted on discharge. This was also discussed with her who supported her request for discharge. Also during this admission medical consult was requested and she was considered medically stable for discharge. At this time, she is felt to have received optimum benefit out of this admission and is felt not to meet Lara Act criteria. At the time of discharge, she is denying any suicidal or homicidal ideations. She is not exhibiting any acute psychotic symptoms. DISCHARGE MEDICATIONS: Her discharge medications are as follows: 1. Abilify 5 milligrams p.o. daily #10 with one refill. 2. Aspirin 81 milligrams p.o. daily #10. 3. Calcium carbonate 250 milligrams p.o. twice a day #10. 4. Cymbalta 30 milligrams three tablets p.o. daily #21 with one refill. 5. Ferrous sulfate 325 milligrams p.o. daily #10. 6. Synthroid 50 milligrams daily, Thursday, Thursday, Thursday, , Thursday, Thursday #10. 7. CellCept 500 milligrams p.o. twice a day #10. 8. Ditropan 5 milligrams p.o. three times a day PRN urinary retention #10. 9. Pilocarpine 5 milligrams p.o. three times a day #10. 10. Lyrica 100 milligrams tablets. She is to take two p.o. three times a day #30. 11. Xarelto 20 milligrams p.o. daily #10. DISCHARGE INSTRUCTIONS: 1. She is to continue follow up with her therapist at [facility], follow up with Dr. Pope. 2. For medical issues, she is to follow up with Dr. Geovani Ortega, her primary care physician. Copies of her labs, et cetera, are to be sent to these physicians. ADDENDUM The discharge had to be postponed until today because neither her brother nor her could come to pick her up. She was again seen again today and seemed in good spirits. She denied any suicidal or homicidal ideations. Discharge plans were again reviewed with her, and she was very supportive. The discharge instructions remain the same. MD LISSETTE Dominguez/ADAM /6:04 PM /9:18 AM
== END 2016-07-12 16:25 | disposition home or self-care (01) | DRG 882 ==
LOC: NEPC 11:47 → NEDA 07-06 10:13 → H250 07-06 11:55
PROVIDERS: ADMIT Psychiatry & Neurology Psychiatry; ATTEND Psychiatry & Neurology Psychiatry
DX: F43.23 Adjustment disorder with mixed anxiety and depressed mood (principal); M32.9 Systemic lupus erythematosus, unspecified; N18.3 Chronic kidney disease, stage 3 (moderate); I69.354 Hemiplegia and hemiparesis following cerebral infarction affecting left non-dominant side; F34.1 Dysthymic disorder; T42.4X4A Poisoning by benzodiazepines, undetermined, initial encounter; Z86.718 Personal history of other venous thrombosis and embolism; M79.7 Fibromyalgia; E78.5 Hyperlipidemia, unspecified; E03.9 Hypothyroidism, unspecified; R33.9 Retention of urine, unspecified; Z79.02 Long term (current) use of antithrombotics/antiplatelets; Z79.82 Long term (current) use of aspirin; R41.82 Altered mental status, unspecified; M06.9 Rheumatoid arthritis, unspecified; Z86.711 Personal history of pulmonary embolism
CPT/HCPCS: 36600; 71010; 80053; 80061; 80307; 82140; 82805; 83036; 84439; 84443; 85025; 93005; 96365; 96375; J2310; J3411; J7030; J7517; P9612

== ENCOUNTER 2016-09-02 09:42 | Emergency (ER) | payer OTHER ==
[~2016-09-02] VITALS: Ht 157.5 cm; Wt 71.0 kg
[~2016-09-02 09:42] MED LIST changes: +ALPR0.25 PO; +ARIP1TAB11 PO; +ASPI1TAB91 PO; +ASPI81TA11 PO; +CITRTAB7 PO; +CYMB30CA PO; +DICL1GEL TOPICAL; +DULO1CAP2 PO; -DULO30 PO; +FERR1TAB36 PO; +FERR325T PO; +LEVO.05 PO; -LURA120T PO; +LYRI100C PO; +MYCO500T PO; +OXYB5TAB10 PO; -OXYB5TAB33 PO; +OYST250T4 PO; +PILO5TAB3 PO; +POTA10TA2 PO; -RIVA20 PO; +SERO25TA PO; +XARE20TA PO
[2016-09-02 09:44] VITALS: BP 111/71; PULSE 98; RESP 16; TEMP 98.5; O2SAT 96
[2016-09-02] MEDS ORDERED: ARIP1TAB5 PO (09:54)
[2016-09-02] MEDS ORDERED: SODIUM CHLORID 0.9% 500 ML INJ 500 ML IV ONE (10:15)
[2016-09-02] MEDS ORDERED: diphenhydrAMINE HCL 50 MG/ML VIAL IVP ONE (10:15)
[2016-09-02] MEDS ORDERED: PROCHLORPERAZINE INJ 10 MG/2 ML VIAL IVP ONE (10:15)
--- NOTE | 2016-09-02 10:15 | PD ---
HPI Chief Complaint: Headache Time Seen by Provider: 09:49 Travel History International Travel<30 days: No Contact w/Intl Traveler<30days: No Traveled to known affect area: No History of Present Illness HPI 41-year-old female presents with frontal tension-like headache that is similar to her prior headaches in the past. She states that she is to be on a medicine that controlled and that she doesn't know what it is but they took her off of it when her headaches went away. She states that she has no associated symptoms including fever, trauma or acute neurologic changes. Quality is pressure. Severity is moderate. She denies specific modifying factors at this time. Duration is past couple of days. She states she took her chronic pain medication without significant relief. 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) Bipolar Disorder: Yes Anxiety: No Depression: No Heart Rhythm Problems: Yes (TACHYCARDIA) Cancer: No Cardiovascular Problems: Yes High Cholesterol: Yes (HX OF) Chemotherapy: Yes (CYTOXIN 3-4 TX FINISHED FOR LUPUS) Chest Pain: No Congestive Heart Failure: No COPD: No Cerebrovascular Accident: Yes Diabetes: No Diminished Hearing: No Deep Vein Thrombosis: Yes (LLE) Endocrine: Yes Gastrointestinal Disorders: Yes GERD: Yes Genitourinary: Yes Headaches: Yes Hepatitis: No Hiatal Hernia: No Hypertension: No Immune Disorder: Yes (LUPUS) Implanted Vascular Access Dvce: Yes Kidney Stones: Yes (seeneal Mercado) Medical other: Yes (STROKE) Musculoskeletal: Yes (FIBROMYALGIA, OSTEOPENIA) Psychiatric: No Reproductive: No Respiratory: Yes (PE) Immunizations Current: Yes Migraines: No Myocardial Infarction: No Radiation Therapy: No Renal Failure: Yes (STAGE 3 RENAL DISEASE BL) Seizures: Yes (2006) Sleep Apnea: No Thyroid Disease: Yes (HYPOTHYROIDSM ) Ulcer: No Tetanus Vaccination: Unknown Influenza Vaccination: Yes PNEUMOCCOCAL Vaccine (Year): 3 ?: Not Menopausal: Yes : 1 Para: 1 Tubal Ligation: Yes (2005) Past Surgical History Abdominal Surgery: Yes (APPENDECTOMY ) AICD: No Appendectomy: Yes Arteriovenous Shunt: No Body Medical Devices: [id number] Cardiac Surgery: No Section: Yes (1995) Cholecystectomy: No Ear Surgery: No Endocrine Surgery: No Eye Surgery: No Genitourinary Surgery: No Gynecologic Surgery: Yes (RIGHT OVARY REMOVAL, C SECTION) Insulin Pump: No Joint Replacement: No Neurologic Surgery: No Oral Surgery: No Pacemaker: No Thoracic Surgery: No Other Surgery: Yes (PORT PLACED AND REMOVED, new port placed 2013. ankle surgery 2016, ) Social History Alcohol Use: Yes (SOCIALLY) Tobacco Use: No Substance Use: No Allergies-Medications (Allergen,Severity, Reaction): Coded Allergies: Erythromycin (Verified Allergy, Severe, THROAT CLOSES AND RASH, 09/02/16) Penicillin (Verified Allergy, Severe, THROAT CLOSES ,SWELLING, 09/02/16) Sulfa (Verified Allergy, Severe, Swelling, RASH, 09/02/16) Baclofen (Verified Allergy, Intermediate, SLURRED SPEECH, 09/02/16) Keflex (Verified Adverse Reaction, Severe, WEAKNESS, 09/02/16) Reported Meds & Prescriptions Reported Meds & Active Scripts Active Xarelto (Rivaroxaban) 20 Mg Tab 20 Mg PO DAILY Cellcept (Mycophenolate Mofetil) 500 Mg Tab 500 Mg PO BID@06,18 Synthroid (Levothyroxine Sodium) 50 Mcg Tab 50 Mcg PO MOTUWETHFRSA@06 Ferrous Sulfate 325 Mg Tab 325 Mg PO DAILY Duloxetine DR (Duloxetine HCl) 30 Mg Capdr 90 Mg PO DAILY Reported Abilify (Aripiprazole) 10 Mg Tab 5 Mg PO DAILY Lortab (Hydrocodone-Acetaminophen) 10-325 Mg Tab 1 Tab PO BID PRN Citracal + D3 Maximum (Calcium Citrate-Vitamin D) 315-250 Mg-Unit Tab 1-2 Tab PO BID Lyrica (Pregabalin) 200 Mg Cap 200 Mg PO TID Pilocarpine 5 Mg Tab 5 Mg PO TID Ditropan (Oxybutynin Chloride) 5 Mg Tab 5 Mg PO TID PRN Review of Systems Except as stated in HPI: all other systems reviewed are Neg Physical Exam Narrative GENERAL: Well-nourished, well-developed patient. well appearing SKIN: Warm and dry. HEAD: Normocephalic and atraumatic. EYES: No injection or drainage. ENT: No nasal drainage noted. NECK: Supple, trachea midline. CARDIOVASCULAR: Regular rate and rhythm RESPIRATORY: No increased effort. No accessory muscle use. GASTROINTESTINAL: Abdomen soft, non-tender, nondistended. NEUROLOGICAL: Awake and alert. Focal deficit noted to arm which is chronic to patient from prior stroke, no new deficit. Normal speech. Data Data Last Documented VS Vital Signs Date Time Temp Pulse Resp B/P Pulse Ox O2 Delivery O2 Flow Rate FiO2 09/02/16 13:13 68 17 134/78 99 09/02/16 09:44 98.5 Orders Complete Blood Count With Diff (09/02/16 10:02) Basic Metabolic Panel (Bmp) (09/02/16 10:02) Ct Brain W/O Iv Contrast(Rout) (09/02/16 10:02) Ecg Monitoring (09/02/16 10:02) Iv Access Insert/Monitor (09/02/16 10:02) Oximetry (09/02/16 10:02) Sodium Chloride 0.9% Flush (Ns Flush) (09/02/16 10:15) Prochlorperazine Inj (Compazine Inj) (09/02/16 10:15) Diphenhydramine Inj (Benadryl Inj) (09/02/16 10:15) Sodium Chlorid 0.9% 500 Ml Inj (Ns 500 M (09/02/16 10:15) Acetaminophen (Tylenol) (09/02/16 12:45) Heparin Central Flush (Heparin Central F (09/02/16 12:45) Sodium Chloride 0.9% Flush (Ns Flush) (09/02/16 12:45) Labs Laboratory Tests Test 09/02/16 11:45 White Blood Count 3.3 TH/MM3 Red Blood Count 3.67 MIL/MM3 Hemoglobin 10.5 GM/DL Hematocrit 32.0 % Mean Corpuscular Volume 87.3 FL Mean Corpuscular Hemoglobin 28.5 PG Mean Corpuscular Hemoglobin 32.7 % Concent Red Cell Distribution Width 14.4 % Platelet Count 214 TH/MM3 Mean Platelet Volume 7.7 FL Neutrophils (%) (Auto) 64.5 % Lymphocytes (%) (Auto) 25.2 % Monocytes (%) (Auto) 7.1 % Eosinophils (%) (Auto) 2.6 % Basophils (%) (Auto) 0.6 % Neutrophils # (Auto) 2.2 TH/MM3 Lymphocytes # (Auto) 0.8 TH/MM3 Monocytes # (Auto) 0.2 TH/MM3 Eosinophils # (Auto) 0.1 TH/MM3 Basophils # (Auto) 0.0 TH/MM3 CBC Comment DIFF FINAL Differential Comment Sodium Level 145 MEQ/L Potassium Level 4.0 MEQ/L Chloride Level 113 MEQ/L Carbon Dioxide Level 25.5 MEQ/L Anion Gap 7 MEQ/L Blood Urea Nitrogen 14 MG/DL Creatinine 1.10 MG/DL Estimat Glomerular Filtration 54 ML/MIN Rate Random Glucose 71 MG/DL Calcium Level 8.4 MG/DL MDM Medical Decision Making Medical Screen Exam Complete: Yes Emergency Medical Condition: Yes Medical Record Reviewed: Yes (past history confirmed) Interpretation(s) CBC & BMP Diagram 09/02/16 11:45 Last [address] 09/02/16 1002 Signed Impressions: Service Date/Time: Friday, September 02, 2016 10:56 - CONCLUSION: Old right MCA infarct with colpocephalic dilation of the ventricular system on the right. The infarct was mentioned in previous report of 06/18/11. No acute abnormality seen. Sanket Guzman MD Differential Diagnosis Tension, migraine, cluster Narrative Course Given history Will check blood work, CT scan and dose with Compazine, Benadryl and IV fluids and reevaluate Patient has mild anemia at 10.5. She denies any active or recent signs of bleeding. She will follow this with the primary care physician. CT stable, Patient denies any new complaints and states that they are feeling better. Patient happy with care, all questions answered. Patient knows that follow up is incumbent on them and to return to the emergency room immediately if new or worsening symptoms develop. Patient given strict return precautions, vitals reviewed and are normal, agrees to further workup as an outpatient. Diagnosis Primary Impression: Headache Qualified Code: R51 - Acute nonintractable headache, unspecified headache type Patient Instructions: General Instructions Additional Instructions: tylenol as needed, follow with primary this week, return as needed Med/Other Pt SpecificInfo: No Change to Meds Disposition: 01 DISCHARGE HOME Condition: Stable Jena Alonzo MD Sep 02, 2016 10:15 Jena Alonzo MD Sep 02, 2016 10:15
[2016-09-02] MEDS: SODIUM CHLORIDE 0.9% FLUSH 10 ML FLUSH IVF PRN ×2 (10:34→13:05)
[2016-09-02 10:36] VITALS: BP 109/72; PULSE 86; RESP 18; O2SAT 97
--- NOTE | 2016-09-02 11:26 | RADRPT ---
EXAM DATE/TIME: 09/02/2016 10:56 [facility] COMPARISON: CTA RUNOFF W 3D RECON, August 12, 2015, 20:29. INDICATIONS : Right temporal headache. RADIATION DOSE: 62.31 CTDIvol (mGy) MEDICAL HISTORY : Lupus. SURGICAL HISTORY : None. ENCOUNTER: Initial ACUITY: 2 days PAIN SCALE: 4/10 LOCATION: Right temporal TECHNIQUE: Multiple contiguous axial images were obtained of the head. Using automated exposure control and adj ustment of the mA and/or kV according to patient size, radiation dose was kept as low as reasonably a chievable to obtain optimal diagnostic quality images. DICOM format image data is available electro nically for review and comparison. FINDINGS: The examination demonstrates an old area of encephalomalacic infarct involving the right parietal cor emily. There is colpocephalic dilation of the lateral horn of the right ventricular system. There is no acute intracranial hemorrhage. No mass lesion is identified. The appearance of the posterior fossa is unremarkable. Visualized portion of sinus and orbit is intact. CONCLUSION: Old right MCA infarct with colpocephalic dilation of the ventricular system on the right. The infarct was mentioned in previous report of 06/18/11. No acute abnormality seen. Sanket Guzman MD on September 02, 2016 at 11:10 Board Certified Radiologist. This report was verified electronically.
[2016-09-02 11:57] LABS: AUTOMATED NEUTROPHIL # 2.2 TH/MM3 (1.8-7.7); BASOPHIL % 0.6 % (0.0-2.0); EOSINOPHIL # 0.1 TH/MM3 (0-0.4); EOSINOPHIL % 2.6 % (0.0-4.0); HEMO FLAGS DIFF FINAL; LYMPH % 25.2 % (9.0-44.0); LYMPHOCYTE # 0.8 TH/MM3 (1.0-4.8); MEAN CELL VOLUME 87.3 FL (80.0-100.0); MEAN CORPUSCULAR HEMOGLOBIN 28.5 PG (27.0-34.0); MEAN CORPUSCULAR HGB CONC 32.7 % (32.0-36.0); MONO % 7.1 % (0.0-8.0); NEUT % 64.5 % (16.0-70.0); PLATELET COUNT 214 TH/MM3 (150-450); RED BLOOD COUNT 3.67 MIL/MM3 (4.00-5.30); RED CELL DISTRIBUTION WIDTH 14.4 % (11.6-17.2); WHITE BLOOD COUNT 3.3 TH/MM3 (4.0-11.0)
[2016-09-02 12:06] LABS: BICARBONATE 25.5 MEQ/L (21.0-32.0)
[2016-09-02] MEDS ORDERED: ACETAMINOPHEN 325 MG TAB PO ONE (12:45)
[2016-09-02] MEDS ORDERED: SODIUM CHLORIDE 0.9% FLUSH 10 ML FLUSH IVF PRN (12:45)
[2016-09-02 13:13] VITALS: BP 134/78
== END 2016-09-02 13:14 | disposition home or self-care (01) ==
LOC: PHED 09:42
DX: R51 Headache (principal)
CPT/HCPCS: 70450; 80048; 85025; 96361; 96374; 96375; 99284; J0780; J1200; J1642; J7040

== ENCOUNTER 2016-12-06 19:42 | Emergency (ER) | payer MEDICARE, OTHER ==
[~2016-12-06] VITALS: Ht 157.5 cm; Wt 69.9 kg
[~2016-12-06 19:42] MED LIST changes: -ALPR0.25 PO; -ARIP1TAB11 PO; +ARIP1TAB5 PO; -ASPI1TAB91 PO; -ASPI81TA11 PO; -CYMB30CA PO; -DICL1GEL TOPICAL; -FERR1TAB36 PO; -LEVO50TA4 PO; -LYRI100C PO; -MYCO500T PO; -OYST250T4 PO; -PILO5 PO; -POTA10TA2 PO; -SERO25TA PO
[2016-12-06 19:58] VITALS: BP 128/74; PULSE 89; RESP 18; TEMP 99.6; O2SAT 98
[2016-12-06] MEDS ORDERED: FERR325T8 PO (20:17)
--- NOTE | 2016-12-06 20:35 | PD ---
HPI . Sore throat Chief Complaint: ENT Complaint Time Seen by Provider: 20:03 Travel History International Travel<30 days: No Contact w/Intl Traveler<30days: No Traveled to known affect area: No History of Present Illness HPI 41-year-old female presents to the emergency department for evaluation of sore throat that started yesterday. Patient has a history of Sjogren syndrome. Originally patient thought that the sore throat with exacerbation of her Sjogren 's, however today she is unable to swallow her medication due to the throat being so sore and dry. Patient denies any fevers, chills, malaise, nausea, vomiting, chest pain, shortness of breath. Patient denies any nasal congestion. The patient's only physiological complaint today is her sore throat. 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) Bipolar Disorder: Yes Anxiety: No Depression: No Heart Rhythm Problems: Yes (TACHYCARDIA) Cancer: No Cardiovascular Problems: Yes High Cholesterol: Yes (HX OF) Chemotherapy: Yes (2 YEARS AGO) Chest Pain: No Congestive Heart Failure: No COPD: No Cerebrovascular Accident: Yes Diabetes: No Diminished Hearing: No Deep Vein Thrombosis: Yes (LLE) Endocrine: Yes Gastrointestinal Disorders: Yes GERD: Yes Genitourinary: Yes Headaches: Yes Hepatitis: No Hiatal Hernia: No Hypertension: No Immune Disorder: Yes (LUPUS) Implanted Vascular Access Dvce: Yes Kidney Stones: Yes (silas Mercado) Medical other: Yes (STROKE) Musculoskeletal: Yes (FIBROMYALGIA, OSTEOPENIA) Psychiatric: No Reproductive: No Respiratory: Yes (PE) Immunizations Current: Yes Migraines: No Myocardial Infarction: No Radiation Therapy: No Renal Failure: Yes (STAGE 3 RENAL DISEASE BL) Seizures: Yes (2006) Sleep Apnea: No Thyroid Disease: Yes (HYPOTHYROIDSM ) Ulcer: No Tetanus Vaccination: < 5 Years PNEUMOCCOCAL Vaccine (Year): 3 ?: Not LMP: MENOPAUSE 2004 Menopausal: Yes : 1 Para: 1 Tubal Ligation: Yes (2005) Past Surgical History Abdominal Surgery: Yes (APPENDECTOMY ) AICD: No Appendectomy: Yes Arteriovenous Shunt: No Body Medical Devices: [id number] Cardiac Surgery: No Section: Yes (1995) Cholecystectomy: No Ear Surgery: No Endocrine Surgery: No Eye Surgery: No Genitourinary Surgery: No Gynecologic Surgery: Yes (RIGHT OVARY REMOVAL, C SECTION) Insulin Pump: No Joint Replacement: No Neurologic Surgery: No Oral Surgery: No Pacemaker: No Thoracic Surgery: No Other Surgery: Yes (PORT PLACED AND REMOVED, new port placed 2013. ankle surgery 2016, ) Social History Alcohol Use: Yes (SOCIALLY) Tobacco Use: No Substance Use: No Allergies-Medications (Allergen,Severity, Reaction): Coded Allergies: Sulfa (Sulfonamide Antibiotics) (Unverified Allergy, Severe, Swelling, RASH, 12/06/16) erythromycin base (Unverified Allergy, Severe, THROAT CLOSES AND RASH, ) penicillin G (Unverified Allergy, Severe, THROAT CLOSES ,SWELLING, ) baclofen (Unverified Allergy, Intermediate, SLURRED SPEECH, 12/06/16) cephalexin (Unverified Adverse Reaction, Severe, WEAKNESS, 12/06/16) Reported Meds & Prescriptions Reported Meds & Active Scripts Active Xarelto (Rivaroxaban) 20 Mg Tab 20 Mg PO DAILY Cellcept (Mycophenolate Mofetil) 500 Mg Tab 500 Mg PO BID@06,18 Synthroid (Levothyroxine Sodium) 50 Mcg Tab 50 Mcg PO MOTUWETHFRSA@[address] (Duloxetine HCl) 30 Mg Capdr 90 Mg PO DAILY Reported Ferrous Sulfate 325 Mg (65 Mg Iron) Tablet 325 Mg PO DAILY Abilify (Aripiprazole) 10 Mg Tab 5 Mg PO DAILY Lortab (Hydrocodone-Acetaminophen) 10-325 Mg Tab 1 Tab PO BID PRN Citracal + D3 Maximum (Calcium Citrate-Vitamin D) 315-250 Mg-Unit Tab 1-2 Tab PO BID Lyrica (Pregabalin) 200 Mg Cap 200 Mg PO TID Pilocarpine 5 Mg Tab 5 Mg PO TID Ditropan (Oxybutynin Chloride) 5 Mg Tab 5 Mg PO TID PRN Review of Systems Except as stated in HPI: all other systems reviewed are Neg Physical Exam Narrative GENERAL: Well-nourished, well-developed 41-year-old female patient in no acute distress. Nontoxic appearing. SKIN: Focused skin assessment warm/dry. HEAD: Normocephalic. Atraumatic. EYES: No scleral icterus. No injection or drainage. NECK: Supple, trachea midline. No JVD or lymphadenopathy. THROAT: Mild pharyngeal injection, no exudates, or tonsillar hypertrophy. Airway is patent. CARDIOVASCULAR: Regular rate and rhythm without murmurs, gallops, or rubs. RESPIRATORY: Breath sounds equal bilaterally. No accessory muscle use. GASTROINTESTINAL: Abdomen soft, non-tender, nondistended. 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 No cyanosis, or edema. BACK: Nontender without obvious deformity. No CVA tenderness. Data Data Last Documented VS Vital Signs Date Time Temp Pulse Resp B/P (MAP) Pulse Ox O2 Delivery O2 Flow Rate FiO2 12/06/16 19:58 99.6 89 18 128/74 (92) 98 MDM Medical Decision Making Medical Screen Exam Complete: Yes Emergency Medical Condition: Yes Differential Diagnosis Differential diagnoses include but not limited to exacerbation of Sjogren syndrome, pharyngitis, viral syndrome, tonsillar abscess Narrative Course 41-year-old female presents for evaluation of sore throat times one day. Patient denies any fevers, shortness breath, cough, chills, malaise, nasal congestion. Patient has a history of Sjogren syndrome. Patient refuses to take any steroids due to negative reaction she had to them in the past. Patient states she cannot take any NSAIDs. Patient will be discharged home with suggestion of using anesthetic throat spray, instructions to stay hydrated and supportive care. Diagnosis Primary Impression: Sore throat Additional Instructions: Please return to emergency department if your symptoms return or worsen. Follow up with your primary care provider. May take Tylenol as needed for pain or fevers. Stay hydrated. l Disposition: 01 DISCHARGE HOME Condition: Stable Veronica Tran Dec 06, 2016 20:35
== END 2016-12-06 21:21 | disposition home or self-care (01) ==
LOC: PHEFT 19:42
DX: J02.9 Acute pharyngitis, unspecified (principal)
CPT/HCPCS: 99282

== ENCOUNTER 2016-12-11 13:50 | Emergency (ER) | payer MEDICARE, OTHER ==
[~2016-12-11] VITALS: Ht 157.5 cm; Wt 72.6 kg
[~2016-12-11 13:50] MED LIST changes: -FERR325T PO; +FERR325T8 PO
[2016-12-11 13:59] VITALS: BP 91/62; PULSE 90; RESP 21; TEMP 98.3; O2SAT 100
[2016-12-11 14:06] VITALS: BP 91/63; PULSE 91; RESP 16; TEMP 98.3; O2SAT 100
--- NOTE | 2016-12-11 14:38 | PD ---
HPI Chief Complaint: Cardiac Complaint Time Seen by Provider: 14:27 Travel History International Travel<30 days: No Contact w/Intl Traveler<30days: No Traveled to known affect area: No History of Present Illness HPI This 41-year-old female is complaining that she feels like her heart is racing. She says this started around 10:00. He does not have a history of heart disease. She does have a history of lupus since 2004. 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 She is also had pulmonary emboli and she is on Xarelto. She has dyspnea on exertion. She is not short of breath at rest. The dyspnea on exertion is chronic. She is not having chest pain. She has not felt weak or dizzy. She has not fainted. 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) Bipolar Disorder: Yes Anxiety: No Depression: No Heart Rhythm Problems: Yes (TACHYCARDIA) Cancer: No Cardiovascular Problems: Yes High Cholesterol: Yes (HX OF) Chemotherapy: Yes (2 YEARS AGO) Chest Pain: No Congestive Heart Failure: No COPD: No Cerebrovascular Accident: Yes Diabetes: No Diminished Hearing: No Deep Vein Thrombosis: Yes (LLE) Endocrine: Yes Gastrointestinal Disorders: Yes GERD: Yes Genitourinary: Yes Headaches: Yes Hepatitis: No Hiatal Hernia: No Hypertension: No Immune Disorder: Yes (LUPUS) Implanted Vascular Access Dvce: Yes Kidney Stones: Yes (seeneal Mercado) Medical other: Yes (STROKE) Musculoskeletal: Yes (FIBROMYALGIA, OSTEOPENIA) Psychiatric: No Reproductive: No Respiratory: Yes (PE) Immunizations Current: Yes Migraines: No Myocardial Infarction: No Radiation Therapy: No Renal Failure: Yes (STAGE 3 RENAL DISEASE BL) Seizures: Yes (2006) Sleep Apnea: No Thyroid Disease: Yes (HYPOTHYROIDSM ) Ulcer: No Tetanus Vaccination: < 5 Years Influenza Vaccination: Yes PNEUMOCCOCAL Vaccine (Year): 3 ?: Not Menopausal: Yes : 1 Para: 1 Tubal Ligation: Yes (2005) Past Surgical History Abdominal Surgery: Yes (APPENDECTOMY ) AICD: No Appendectomy: Yes Arteriovenous Shunt: No Body Medical Devices: [id number] Cardiac Surgery: No Section: Yes (1995) Cholecystectomy: No Ear Surgery: No Endocrine Surgery: No Eye Surgery: No Genitourinary Surgery: No Gynecologic Surgery: Yes (RIGHT OVARY REMOVAL, C SECTION) Insulin Pump: No Joint Replacement: No Neurologic Surgery: No Oral Surgery: No Pacemaker: No Thoracic Surgery: No Other Surgery: Yes (PORT PLACED AND REMOVED, new port placed 2012. ankle surgery 2015, ) Social History Alcohol Use: Yes (SOCIALLY) Tobacco Use: No Substance Use: No Allergies-Medications (Allergen,Severity, Reaction): Coded Allergies: Sulfa (Sulfonamide Antibiotics) (Unverified Allergy, Severe, Swelling, RASH, 12/06/16) erythromycin base (Unverified Allergy, Severe, THROAT CLOSES AND RASH, ) penicillin G (Unverified Allergy, Severe, THROAT CLOSES ,SWELLING, ) baclofen (Unverified Allergy, Intermediate, SLURRED SPEECH, 12/06/16) cephalexin (Unverified Adverse Reaction, Severe, WEAKNESS, 12/06/16) Reported Meds & Prescriptions Reported Meds & Active Scripts Active Xarelto (Rivaroxaban) 20 Mg Tab 20 Mg PO DAILY Cellcept (Mycophenolate Mofetil) 500 Mg Tab 500 Mg PO BID@06,18 Synthroid (Levothyroxine Sodium) 50 Mcg Tab 50 Mcg PO MOTUWETHFRSA@[address] (Duloxetine HCl) 30 Mg Capdr 90 Mg PO DAILY Reported Ferrous Sulfate 325 Mg (65 Mg Iron) Tablet 325 Mg PO DAILY Abilify (Aripiprazole) 10 Mg Tab 5 Mg PO DAILY Lortab (Hydrocodone-Acetaminophen) 10-325 Mg Tab 1 Tab PO BID PRN Citracal + D3 Maximum (Calcium Citrate-Vitamin D) 315-250 Mg-Unit Tab 1-2 Tab PO BID Lyrica (Pregabalin) 200 Mg Cap 200 Mg PO TID Pilocarpine 5 Mg Tab 5 Mg PO TID Ditropan (Oxybutynin Chloride) 5 Mg Tab 5 Mg PO TID PRN Review of Systems General / Constitutional: No: Fever, Chills Eyes: No: Diploplia, Blurred Vision HENT: No: Headaches, Vertigo Cardiovascular: Positive: Palpitations, No: Chest Pain or Discomfort Respiratory: No: Cough Gastrointestinal: No: Nausea, Vomiting Genitourinary: No: Urgency, Frequency Musculoskeletal: No: Myalgias, Arthralgias Skin: No Rash Neurologic: No: Weakness Physical Exam Narrative GENERAL: Well-developed female SKIN: Focused skin assessment warm/dry. HEAD: Atraumatic. Normocephalic. EYES: Pupils equal and round. No scleral icterus. No injection or drainage. ENT: No nasal bleeding or discharge. Mucous membranes pink and moist. NECK: Trachea midline. No JVD. CARDIOVASCULAR: Regular rate and rhythm. No murmur appreciated. RESPIRATORY: No accessory muscle use. Clear to auscultation. Breath sounds equal bilaterally. GASTROINTESTINAL: Abdomen soft, non-tender, nondistended. Hepatic and splenic margins not palpable. MUSCULOSKELETAL: No obvious deformities. No clubbing. No cyanosis. No edema. NEUROLOGICAL: Awake and alert. There is a left-sided hemiparesis PSYCHIATRIC: Appropriate mood and affect; insight and judgment normal. Data Data Last Documented VS Vital Signs Date Time Temp Pulse Resp B/P (MAP) Pulse Ox O2 Delivery O2 Flow Rate FiO2 12/11/16 15:51 98 Room Air 12/11/16 14:06 98.3 91 16 91/63 (72) Orders Orders Electrocardiogram (12/11/16 14:34) Complete Blood Count With Diff (12/11/16 14:34) Basic Metabolic Panel (Bmp) (12/11/16 14:34) Troponin I (12/11/16 14:34) Chest, Single Ap (12/11/16 14:34) Labs Laboratory Tests Test 12/11/16 14:50 White Blood Count 3.9 TH/MM3 Red Blood Count 3.73 MIL/MM3 Hemoglobin 10.9 GM/DL Hematocrit 33.0 % Mean Corpuscular Volume 88.4 FL Mean Corpuscular Hemoglobin 29.4 PG Mean Corpuscular Hemoglobin Concent 33.2 % Red Cell Distribution Width 14.1 % Platelet Count 248 TH/MM3 Mean Platelet Volume 8.0 FL Neutrophils (%) (Auto) 61.8 % Lymphocytes (%) (Auto) 24.2 % Monocytes (%) (Auto) 6.7 % Eosinophils (%) (Auto) 4.5 % Basophils (%) (Auto) 2.8 % Neutrophils # (Auto) 2.4 TH/MM3 Lymphocytes # (Auto) 0.9 TH/MM3 Monocytes # (Auto) 0.3 TH/MM3 Eosinophils # (Auto) 0.2 TH/MM3 Basophils # (Auto) 0.1 TH/MM3 CBC Comment DIFF FINAL Differential Comment Blood Urea Nitrogen 10 MG/DL Creatinine 1.10 MG/DL Random Glucose 84 MG/DL Calcium Level 8.9 MG/DL Sodium Level 141 MEQ/L Potassium Level 4.2 MEQ/L Chloride Level 107 MEQ/L Carbon Dioxide Level 26.0 MEQ/L Anion Gap 8 MEQ/L Estimat Glomerular Filtration Rate 54 ML/MIN Troponin I LESS THAN 0.02 NG/ML MDM Medical Decision Making Medical Screen Exam Complete: Yes Emergency Medical Condition: Yes Medical Record Reviewed: Yes Differential Diagnosis Differential includes atrial fibrillation, bradycardia, tachycardia pulmonary embolus Narrative Course Lab work is unremarkable. Her pulse rate here is 90 with a saturation of 99%. She is on blood thinners that'll need further evaluation she is stable for discharge Diagnosis Primary Impression: Palpitations Disposition: DISCHARGE HOME Condition: Stable Gopi Guo MD Dec 11, 2016 14:38
[2016-12-11 15:15] LABS: AUTOMATED NEUTROPHIL # 2.4 TH/MM3 (1.8-7.7); BASOPHIL # 0.1 TH/MM3 (0-0.2); BASOPHIL % 2.8 % (0.0-2.0); EOSINOPHIL # 0.2 TH/MM3 (0-0.4); EOSINOPHIL % 4.5 % (0.0-4.0); HEMO FLAGS DIFF FINAL; LYMPH % 24.2 % (9.0-44.0); LYMPHOCYTE # 0.9 TH/MM3 (1.0-4.8); MEAN CELL VOLUME 88.4 FL (80.0-100.0); MEAN CORPUSCULAR HEMOGLOBIN 29.4 PG (27.0-34.0); MEAN CORPUSCULAR HGB CONC 33.2 % (32.0-36.0); MONO % 6.7 % (0.0-8.0); NEUT % 61.8 % (16.0-70.0); PLATELET COUNT 248 TH/MM3 (150-450); RED BLOOD COUNT 3.73 MIL/MM3 (4.00-5.30); RED CELL DISTRIBUTION WIDTH 14.1 % (11.6-17.2); WHITE BLOOD COUNT 3.9 TH/MM3 (4.0-11.0)
[2016-12-11 15:22] LABS: CHLORIDE 107 MEQ/L (98-107); SODIUM (NA) 141 MEQ/L (136-145)
--- NOTE | 2016-12-11 15:22 | RADRPT ---
EXAM DATE/TIME: 12/11/2016 15:13 [facility] COMPARISON: CHEST SINGLE AP, July 05, 2016, 12:08. INDICATIONS : Productive cough and short of breath. MEDICAL HISTORY : Lupus SURGICAL HISTORY : None. ENCOUNTER: Initial ACUITY: 1 day PAIN SCORE: 0/10 LOCATION: Bilateral chest FINDINGS: A single view of the chest demonstrates the lungs to be symmetrically aerated without evidence of mas s, infiltrate or effusion. The cardiomediastinal contours are unremarkable and stable. Osseous stru ctures are intact and stable. The right-sided central line remains in place. CONCLUSION: No acute disease. No significant change has occurred. Lito Walls MD on December 11, 2016 at 15:20 Board Certified Radiologist. This report was verified electronically.
[2016-12-11 15:24] LABS: ANION GAP 8 MEQ/L (5-15)
[2016-12-11 15:25] LABS: BLOOD UREA NITROGEN 10 MG/DL (7-18)
[2016-12-11 15:28] LABS: GLOMERULAR FILTRATION RATE 54 ML/MIN (>89)
[2016-12-11 15:29] LABS: POTASSIUM 4.2 MEQ/L (3.5-5.1)
[2016-12-11 15:52] VITALS: BP 91/62
--- NOTE | 2016-12-12 22:03 | EKG ---
Date Performed: 12/11/2016 Time Performed: 15:32:07 PTAGE: 41 years EKG: Sinus rhythm NONSPECIFIC T-WAVE ABNORMALITY BORDERLINE ECG PREVIOUS TRACING : 07/05/2016 12.12 Compared to prior tracing no significant change DOCTOR: Samuel Cerrato Interpretating Date/Time 12/12/2016 21:37:31
== END 2016-12-11 16:03 | disposition home or self-care (01) ==
LOC: PHED 13:50
DX: R00.2 Palpitations (principal); M32.9 Systemic lupus erythematosus, unspecified; Z79.01 Long term (current) use of anticoagulants
CPT/HCPCS: 71010; 80048; 84484; 85025; 93005; 99285

== ENCOUNTER 2017-01-05 09:54 | Emergency (ER) | payer MEDICARE, OTHER ==
[~2017-01-05] VITALS: Ht 157.5 cm; Wt 72.7 kg
[~2017-01-05 09:54] MED LIST changes: +ABIL10TA8 PO; -ARIP1TAB5 PO; +FERR325T18 PO; -FERR325T8 PO; -OXYB5TAB10 PO; +OXYB5TAB8 PO
[2017-01-05 09:57] VITALS: BP 121/84; PULSE 90; RESP 14; TEMP 98.2; O2SAT 99
[2017-01-05] MEDS ORDERED: ONDANSETRON HCL 4 MG/2 ML VIAL IVP ONE (10:15)
[2017-01-05] MEDS ORDERED: MORPHINE SULFATE 4 MG/ML INJ IV PUSH ONE (10:15)
[2017-01-05] MEDS ORDERED: SODIUM CHLORIDE 0.9% FLUSH 10 ML FLUSH IV FLUSH PRN (10:15)
[2017-01-05] MEDS ORDERED: ALUMINUM/MAGNESIUM/SIMETH 30 ML CUP PO ONE (10:15)
--- NOTE | 2017-01-05 10:19 | PD ---
HPI Chief Complaint: Chest Pain Time Seen by Provider: 10:01 Travel History International Travel<30 days: No Contact w/Intl Traveler<30days: No Traveled to known affect area: No History of Present Illness HPI The patient is a 41-year-old female who presents to the emergency department for chest pain. The patient states she developed chest pain last night while lying in bed. The chest pain is substernal, dull and achy, associated with a mild foul taste in her mouth similar to reflux as well as pain with moving her right upper extremity. The patient denies any known history of coronary artery disease, hypertension, hyperlipidemia, diabetes, or previous RI. 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 The patient is currently taking Xarelto. The patient denies any dyspnea or shortness of breath, nausea, vomiting, or diaphoresis. Symptoms are mild to moderate, worse with lying supine and with moving the right upper extremity. The patient is followed by her command and control officer, Dr. Nieto. [facility] Past Medical History Arthritis: Yes (RA) Asthma: No Autoimmune Disease: Yes (LUPUS, SJOGREN'S) Blood Disorders: Yes (CLOTTING STATES FROM LUPUS) Bipolar Disorder: Yes Anxiety: No Depression: No Heart Rhythm Problems: Yes (TACHYCARDIA) Cancer: No Cardiovascular Problems: Yes High Cholesterol: Yes (HX OF) Chemotherapy: Yes (2 YEARS AGO) Chest Pain: No Congestive Heart Failure: No COPD: No Cerebrovascular Accident: Yes Diabetes: No Diminished Hearing: No Deep Vein Thrombosis: Yes (LLE) Endocrine: Yes Gastrointestinal Disorders: Yes GERD: Yes Genitourinary: Yes Headaches: Yes Hepatitis: No Hiatal Hernia: No Hypertension: No Immune Disorder: Yes (LUPUS) Implanted Vascular Access Dvce: Yes Kidney Stones: Yes (sees Dr Mercado) Medical other: Yes (STROKE) Musculoskeletal: Yes (FIBROMYALGIA, OSTEOPENIA) Psychiatric: No Reproductive: No Respiratory: Yes (PE) Immunizations Current: Yes Migraines: No Myocardial Infarction: No Radiation Therapy: No Renal Failure: Yes (STAGE 3 RENAL DISEASE BL) Seizures: Yes (2006) Sleep Apnea: No Thyroid Disease: Yes (HYPOTHYROIDSM ) Ulcer: No PNEUMOCCOCAL Vaccine (Year): 3 ?: Unknown Menopausal: Yes : 1 Para: 1 Tubal Ligation: Yes (2005) Past Surgical History Abdominal Surgery: Yes (APPENDECTOMY ) AICD: No Appendectomy: Yes Arteriovenous Shunt: No Body Medical Devices: [id number] Cardiac Surgery: No Section: Yes (1995) Cholecystectomy: No Ear Surgery: No Endocrine Surgery: No Eye Surgery: No Genitourinary Surgery: No Gynecologic Surgery: Yes (RIGHT OVARY REMOVAL, C SECTION) Insulin Pump: No Joint Replacement: No Neurologic Surgery: No Oral Surgery: No Pacemaker: No Thoracic Surgery: No Other Surgery: Yes (PORT PLACED AND REMOVED, new port placed 2012. ankle surgery 2016, ) Social History Alcohol Use: Yes (SOCIALLY) Tobacco Use: No Substance Use: No Allergies-Medications (Allergen,Severity, Reaction): Coded Allergies: Sulfa (Sulfonamide Antibiotics) (Unverified Allergy, Severe, Swelling, RASH, 01/05/17) erythromycin base (Unverified Allergy, Severe, THROAT CLOSES AND RASH, ) penicillin G (Unverified Allergy, Severe, THROAT CLOSES ,SWELLING, ) baclofen (Unverified Allergy, Intermediate, SLURRED SPEECH, 01/05/17) cephalexin (Unverified Adverse Reaction, Severe, WEAKNESS, 01/05/17) Reported Meds & Prescriptions Reported Meds & Active Scripts Active Xarelto (Rivaroxaban) 20 Mg Tab 20 Mg PO DAILY Cellcept (Mycophenolate Mofetil) 500 Mg Tab 500 Mg PO BID@06,18 Synthroid (Levothyroxine Sodium) 50 Mcg Tab 50 Mcg PO MOTUWETHFRSA@[address] (Duloxetine HCl) 30 Mg Capdr 90 Mg PO DAILY Reported Hydrocodone-Acetaminophen 10-325 mg Tab 1 Tab PO Q12HR PRN Ferrous Sulfate 325 Mg (65 Mg Iron) Tablet 325 Mg PO DAILY Abilify (Aripiprazole) 10 Mg Tab 5 Mg PO DAILY Citracal + D3 Maximum (Calcium Citrate-Vitamin D) 315-250 Mg-Unit Tab 1-2 Tab PO BID Lyrica (Pregabalin) 200 Mg Cap 200 Mg PO TID Pilocarpine 5 Mg Tab 5 Mg PO TID Ditropan (Oxybutynin Chloride) 5 Mg Tab 5 Mg PO TID PRN Review of Systems Except as stated in HPI: all other systems reviewed are Neg HENT: No: Lightheadedness Cardiovascular: Positive: Chest Pain or Discomfort, No: Diaphoresis, Dyspnea on exertion Respiratory: No: Shortness of Breath Gastrointestinal: Positive: Indigestion, No: Nausea, Vomiting, Abdominal Pain Musculoskeletal: No: Edema Neurologic: Positive: Other (left-sided weakness from previous CVA) Physical Exam Narrative GENERAL: Awake, alert, pleasant 41 year-old female who appears her stated age and is in no acute respiratory distress. SKIN: Focused skin assessment warm/dry. HEAD: Atraumatic. Normocephalic. EYES: No injection or drainage. ENT: No nasal bleeding or discharge. Mucous membranes pink and moist. NECK: Trachea midline. No JVD. CARDIOVASCULAR: Regular rate and rhythm. No murmur appreciated. Palpation of the chest wall reproduces symptoms. Moving the right upper extremity reproduces symptoms. RESPIRATORY: No accessory muscle use. Clear to auscultation. Breath sounds equal bilaterally. GASTROINTESTINAL: Abdomen soft, non-tender, nondistended. No epigastric tenderness. MUSCULOSKELETAL: No obvious deformities. No clubbing. No cyanosis. No edema. NEUROLOGICAL: Awake and alert. No obvious cranial nerve deficits. Left upper extremity has contracture with flexion the left wrist. Left lower extremity is in a walking brace. PSYCHIATRIC: Appropriate mood and affect; insight and judgment normal. Data Data Last Documented VS Vital Signs Date Time Temp Pulse Resp B/P (MAP) Pulse Ox O2 Delivery O2 Flow Rate FiO2 01/05/17 14:04 84 16 101/56 (71) Room Air 01/05/17 11:00 99 01/05/17 09:57 98.2 Orders Orders Electrocardiogram (01/05/17 10:13) Ckmb (Isoenzyme) Profile (01/05/17 10:13) Complete Blood Count With Diff (01/05/17 10:13) Comprehensive Metabolic Panel (01/05/17 10:13) Magnesium (Mg) (01/05/17 10:13) Prothrombin Time / Inr (Pt) (01/05/17 10:13) Act Partial Throm Time (Ptt) (01/05/17 10:13) Troponin I (01/05/17 10:13) Lipase (01/05/17 10:13) Chest, Single Ap (01/05/17 10:13) Ecg Monitoring (01/05/17 10:13) Bilateral Bp Monitoring (01/05/17 10:13) Iv Access Insert/Monitor (01/05/17 10:13) Oximetry (01/05/17 10:13) Oxygen Administration (01/05/17 10:13) Morphine Inj (Morphine Inj) (01/05/17 10:15) Ondansetron Inj (Zofran Inj) (01/05/17 10:15) Sodium Chloride 0.9% Flush (Ns Flush) (01/05/17 10:15) Al-Mag Hy-Si 40-40-4 Mg/Ml Liq (Mag-Al P (01/05/17 10:15) CKMB (01/05/17 10:50) CKMB% (01/05/17 10:50) Troponin I (01/05/17 13:50) Ketorolac Inj (Toradol Inj) (01/05/17 13:00) Labs Laboratory Tests Test 01/05/17 10:50 01/05/17 13:40 White Blood Count 5.0 TH/MM3 Red Blood Count 3.61 MIL/MM3 Hemoglobin 10.9 GM/DL Hematocrit 32.6 % Mean Corpuscular Volume 90.3 FL Mean Corpuscular Hemoglobin 30.2 PG Mean Corpuscular Hemoglobin Concent 33.4 % Red Cell Distribution Width 14.5 % Platelet Count 252 TH/MM3 Mean Platelet Volume 8.0 FL Neutrophils (%) (Auto) 71.4 % Lymphocytes (%) (Auto) 18.7 % Monocytes (%) (Auto) 7.3 % Eosinophils (%) (Auto) 2.1 % Basophils (%) (Auto) 0.5 % Neutrophils # (Auto) 3.6 TH/MM3 Lymphocytes # (Auto) 0.9 TH/MM3 Monocytes # (Auto) 0.4 TH/MM3 Eosinophils # (Auto) 0.1 TH/MM3 Basophils # (Auto) 0.0 TH/MM3 CBC Comment DIFF FINAL Differential Comment Prothrombin Time 12.0 SEC Prothromb Time International Ratio 1.1 RATIO Activated Partial Thromboplast Time 37.7 SEC Blood Urea Nitrogen 12 MG/DL Creatinine 1.03 MG/DL Random Glucose 80 MG/DL Total Protein 7.4 GM/DL Albumin 3.7 GM/DL Calcium Level 8.9 MG/DL Magnesium Level 2.0 MG/DL Alkaline Phosphatase 97 U/L Aspartate Amino Transf (AST/SGOT) 19 U/L Alanine Aminotransferase (ALT/SGPT) 24 U/L Total Bilirubin 0.6 MG/DL Sodium Level 139 MEQ/L Potassium Level 3.7 MEQ/L Chloride Level 107 MEQ/L Carbon Dioxide Level 23.7 MEQ/L Anion Gap 8 MEQ/L Estimat Glomerular Filtration Rate 58 ML/MIN Total Creatine Kinase 115 U/L Creatine Kinase MB 2.9 NG/ML Troponin I LESS THAN 0.02 NG/ML LESS THAN 0.02 NG/ML Lipase 82 U/L MDM Medical Decision Making Medical Screen Exam Complete: Yes Emergency Medical Condition: Yes Medical Record Reviewed: Yes Interpretation(s) EKG reveals normal sinus rhythm with a rate 80. Nonspecific T wave changes. Laboratory Tests Test 01/05/17 10:50 01/05/17 13:40 White Blood Count 5.0 TH/MM3 Red Blood Count 3.61 MIL/MM3 Hemoglobin 10.9 GM/DL Hematocrit 32.6 % Mean Corpuscular Volume 90.3 FL Mean Corpuscular Hemoglobin 30.2 PG Mean Corpuscular Hemoglobin Concent 33.4 % Red Cell Distribution Width 14.5 % Platelet Count 252 TH/MM3 Mean Platelet Volume 8.0 FL Neutrophils (%) (Auto) 71.4 % Lymphocytes (%) (Auto) 18.7 % Monocytes (%) (Auto) 7.3 % Eosinophils (%) (Auto) 2.1 % Basophils (%) (Auto) 0.5 % Neutrophils # (Auto) 3.6 TH/MM3 Lymphocytes # (Auto) 0.9 TH/MM3 Monocytes # (Auto) 0.4 TH/MM3 Eosinophils # (Auto) 0.1 TH/MM3 Basophils # (Auto) 0.0 TH/MM3 CBC Comment DIFF FINAL Differential Comment Prothrombin Time 12.0 SEC Prothromb Time International Ratio 1.1 RATIO Activated Partial Thromboplast Time 37.7 SEC Blood Urea Nitrogen 12 MG/DL Creatinine 1.03 MG/DL Random Glucose 80 MG/DL Total Protein 7.4 GM/DL Albumin 3.7 GM/DL Calcium Level 8.9 MG/DL Magnesium Level 2.0 MG/DL Alkaline Phosphatase 97 U/L Aspartate Amino Transf (AST/SGOT) 19 U/L Alanine Aminotransferase (ALT/SGPT) 24 U/L Total Bilirubin 0.6 MG/DL Sodium Level 139 MEQ/L Potassium Level 3.7 MEQ/L Chloride Level 107 MEQ/L Carbon Dioxide Level 23.7 MEQ/L Anion Gap 8 MEQ/L Estimat Glomerular Filtration Rate 58 ML/MIN Total Creatine Kinase 115 U/L Creatine Kinase MB 2.9 NG/ML Troponin I LESS THAN 0.02 NG/ML LESS THAN 0.02 NG/ML Lipase 82 U/L Differential Diagnosis Differential diagnosis includes GERD, esophageal spasm, reflux, costochondritis , ACS, pericardial effusion, pulmonary embolism, pericarditis. Narrative Course IV was established, labs are drawn and sent, and the patient was placed on cardiac telemetry monitoring and continuous pulse oximetry monitoring. EKG was ordered and interpreted. Chest x-rays obtained. The patient was administered a GI cocktail, morphine, and Zofran. The patient's initial troponin was unremarkable. Chest x-rays unremarkable. The patient was reevaluated, her pain did improve, however, did return. Her pain is atypical, reproducible with palpation. Therefore, she was administered Toradol intravenously. Repeat troponin is negative. The patient had a stress test, nuclear medicine myocardial perfusion that was read as low risk on October 04, 2015. Patient is stable for outpatient follow-up. Diagnosis Primary Impression: Atypical chest pain Patient Instructions: General Instructions Additional Instructions: Please provide a patient a copy of her labs and x-ray results at discharge. Follow-up with her primary physician. Continue home medications as previously directed. Med/Other Pt SpecificInfo: No Change to Meds Disposition: 01 DISCHARGE HOME Condition: Stable Dami Carmona MD Jan 05, 2017 10:19
--- NOTE | 2017-01-05 10:30 | RADRPT ---
EXAM DATE/TIME: 01/05/2017 10:26 [facility] COMPARISON: CHEST SINGLE AP, December 11, 2016, 15:13. INDICATIONS : Patient states chest pains. MEDICAL HISTORY : Stroke. Lupus SURGICAL HISTORY : Shoulder ENCOUNTER: Initial ACUITY: 1 day PAIN SCORE: 7/10 LOCATION: Bilateral chest FINDINGS: A single view of the chest demonstrates the lungs to be symmetrically aerated without evidence of mas s, infiltrate or effusion. The cardiomediastinal contours are unremarkable. Sptgji-h-Ebys tip in th e right atrium. Shoulder arthroplasty on the right CONCLUSION: Lungs are clear. Paxfpu-f-Ivdk tip Right atrium. Israel Guzman MD FACR on January 05, 2017 at 10:28 Board Certified Radiologist. This report was verified electronically.
[2017-01-05 11:00] VITALS: RESP 20; O2SAT 99
[2017-01-05] MEDS ORDERED: HYDR-3583 PO (11:05)
[2017-01-05 11:13] LABS: AUTOMATED NEUTROPHIL # 3.6 TH/MM3 (1.8-7.7); BASOPHIL % 0.5 % (0.0-2.0); EOSINOPHIL # 0.1 TH/MM3 (0-0.4); EOSINOPHIL % 2.1 % (0.0-4.0); HEMATOCRIT 32.6 % (35.0-46.0); HEMO FLAGS DIFF FINAL; LYMPH % 18.7 % (9.0-44.0); LYMPHOCYTE # 0.9 TH/MM3 (1.0-4.8); MEAN CELL VOLUME 90.3 FL (80.0-100.0); MEAN CORPUSCULAR HEMOGLOBIN 30.2 PG (27.0-34.0); MEAN CORPUSCULAR HGB CONC 33.4 % (32.0-36.0); MONO % 7.3 % (0.0-8.0); NEUT % 71.4 % (16.0-70.0); PLATELET COUNT 252 TH/MM3 (150-450); RED BLOOD COUNT 3.61 MIL/MM3 (4.00-5.30); RED CELL DISTRIBUTION WIDTH 14.5 % (11.6-17.2)
[2017-01-05 11:30] LABS: APTT (PATIENT) 37.7 SEC (24.3-30.1); INTERNATIONAL NORMALIZED RATIO 1.1 RATIO
[2017-01-05 12:21] LABS: BLOOD UREA NITROGEN 12 MG/DL (7-18); GLOMERULAR FILTRATION RATE 58 ML/MIN (>89)
[2017-01-05 12:22] LABS: ALKALINE PHOSPHATASE 97 U/L (45-117); ALT (GPT) 24 U/L (10-53); ANION GAP 8 MEQ/L (5-15); AST (GOT) 19 U/L (15-37); BICARBONATE 23.7 MEQ/L (21.0-32.0); CHLORIDE 107 MEQ/L (98-107); CREATINE KINASE 115 U/L (26-192); POTASSIUM 3.7 MEQ/L (3.5-5.1); SODIUM (NA) 139 MEQ/L (136-145); TOTAL BILIRUBIN ADULT 0.6 MG/DL (0.2-1.0)
[2017-01-05] MEDS ORDERED: KETOROLAC TROMETHAMINE 30 MG/ML (IVP) VIAL IV PUSH ONE (13:00)
[2017-01-05 13:06] LABS: CKMB 2.9 NG/ML (0.5-3.6)
[2017-01-05 14:04] VITALS: BP 101/56; PULSE 84; RESP 16
[2017-01-05 14:45] VITALS: RESP 20
--- NOTE | 2017-01-05 19:35 | EKG ---
Date Performed: 01/05/2017 Time Performed: 10:04:36 PTAGE: 41 years EKG: Sinus rhythm NONSPECIFIC T-WAVE ABNORMALITY BORDERLINE ECG Since PREVIOUS TRACING , no significant change noted PREVIOUS TRACIN12/11/2016 15.32 DOCTOR: Kwaku Singleton Interpretating Date/Time 01/05/2017 19:33:13
== END 2017-01-05 16:21 | disposition home or self-care (01) ==
LOC: NEPE 09:54
DX: R07.89 Other chest pain (principal); R94.31 Abnormal electrocardiogram [ECG] [EKG]; I25.10 Atherosclerotic heart disease of native coronary artery without angina pectoris; I10 Essential (primary) hypertension; R00.0 Tachycardia, unspecified
CPT/HCPCS: 71010; 80053; 82550; 82552; 83690; 83735; 84484; 85025; 85610; 85730; 93005; 96374; 96375; 99285; J1642; J1885; J2270; J2405

== ENCOUNTER 2017-03-14 20:22 | Observation (INO) | payer MEDICARE, OTHER ==
[~2017-03-14] VITALS: Ht 157.5 cm; Wt 72.0 kg
[~2017-03-14 20:22] MED LIST changes: -HYDR-3535 PO; +HYDR-3583 PO
[2017-03-14 20:32] VITALS: BP 133/90; PULSE 98; RESP 16; TEMP 97.6; TEMP 99.8; O2SAT 99
[2017-03-14] MEDS ORDERED: CYMB30CA PO (20:39)
[2017-03-14] MEDS ORDERED: TYLETAB34 PO (20:39)
[2017-03-14] MEDS ORDERED: SODIUM CHLORIDE 0.9% FLUSH 10 ML FLUSH IVF PRN (20:45)
[2017-03-14] MEDS ORDERED: methylPREDNISolone SOD SUCC 125 MG/2 ML VIAL IV PUSH ONE (20:45)
[2017-03-14] MEDS ORDERED: SODIUM CHLORID 0.9% 500 ML INJ 500 ML IV ONE (20:45)
[2017-03-14 21:06] LABS: AUTOMATED NEUTROPHIL # 2.8 TH/MM3 (1.8-7.7); BASOPHIL % 0.8 % (0.0-2.0); EOSINOPHIL # 0.1 TH/MM3 (0-0.4); EOSINOPHIL % 1.9 % (0.0-4.0); HEMATOCRIT 36.1 % (35.0-46.0); HEMOGLOBIN 12.1 GM/DL (11.6-15.3); LYMPHOCYTE # 1.1 TH/MM3 (1.0-4.8); MEAN CELL VOLUME 89.6 FL (80.0-100.0); MEAN CORPUSCULAR HGB CONC 33.5 % (32.0-36.0); MEAN PLATELET VOLUME 7.8 FL (7.0-11.0); MONO % 8.1 % (0.0-8.0); MONOCYTE # 0.4 TH/MM3 (0-0.9); NEUT % 64.2 % (16.0-70.0); PLATELET COUNT 234 TH/MM3 (150-450); RED BLOOD COUNT 4.03 MIL/MM3 (4.00-5.30); RED CELL DISTRIBUTION WIDTH 13.8 % (11.6-17.2); WHITE BLOOD COUNT 4.4 TH/MM3 (4.0-11.0)
--- NOTE | 2017-03-14 21:19 | RADRPT ---
EXAM DATE/TIME: 03/14/2017 20:48 [facility] COMPARISON: CHEST SINGLE AP, January 05, 2017, 10:26. INDICATIONS : Shortness of breath. MEDICAL HISTORY : Stroke. Lupus. SURGICAL HISTORY : None. ENCOUNTER: Initial ACUITY: 1 day PAIN SCORE: 2/10 LOCATION: Bilateral chest FINDINGS: A single view of the chest demonstrates the lungs to be symmetrically aerated without evidence of mas s, infiltrate or effusion. Right-sided Yyosgs-i-Ibxb catheter unchanged. The cardiomediastinal conto urs are unremarkable. Osseous structures are intact. Small cylindrical radiopaque density overlies l eft chest likely external to patient. CONCLUSION: No acute disease. Edu Lozano MD on March 14, 2017 at 21:16 Board Certified Radiologist. This report was verified electronically.
[2017-03-14 21:20] LABS: INTERNATIONAL NORMALIZED RATIO 1.3 RATIO; PROTHROMBIN TIME - PATIENT 12.9 SEC (9.8-11.6)
--- NOTE | 2017-03-14 21:20 | RADRPT ---
EXAM DATE/TIME: 03/14/2017 20:58 [facility] COMPARISON: CT BRAIN W/O CONTRAST, September 02, 2016, 10:56. INDICATIONS : Generalized weakness. RADIATION DOSE: 35.05 CTDIvol (mGy) MEDICAL HISTORY : Cerebrovascular disease. Seizures. Gastroesophageal reflux disease.Renal failure Lupus SURGICAL HISTORY : Tubal ligation. ENCOUNTER: Initial ACUITY: 1 day PAIN SCALE: 0/10 LOCATION: cranial TECHNIQUE: Multiple contiguous axial images were obtained of the head. Using automated exposure control and adj ustment of the mA and/or kV according to patient size, radiation dose was kept as low as reasonably a chievable to obtain optimal diagnostic quality images. DICOM format image data is available electro nically for review and comparison. FINDINGS: CEREBRUM: Encephalomalacia in the right frontal parietal lobe with ex vacuo dilatation of the right lateral roge tricle. Right basal ganglia infarct. The ventricles are normal for age. No evidence of midline shift , mass lesion, hemorrhage or acute infarction. No extra-axial fluid collections are seen. POSTERIOR FOSSA: The cerebellum and brainstem are intact. The 4th ventricle is midline. The cerebellopontine angle i s unremarkable. EXTRACRANIAL: The visualized portion of the orbits is intact. SKULL: The calvaria is intact. No evidence of skull fracture. CONCLUSION: 1. Right-sided infarct again seen. 2. No acute intracranial abnormality. Edu Lozano MD on March 14, 2017 at 21:17 Board Certified Radiologist. This report was verified electronically.
[2017-03-14 21:25] LABS: AST (GOT) 13 U/L (15-37); BICARBONATE 24.9 MEQ/L (21.0-32.0); BLOOD UREA NITROGEN 11 MG/DL (7-18); CHLORIDE 106 MEQ/L (98-107); GLOMERULAR FILTRATION RATE 49 ML/MIN (>89); GLUCOSE,RANDOM 86 MG/DL (74-106); SODIUM (NA) 138 MEQ/L (136-145)
[2017-03-14 21:26] LABS: ALT (GPT) 18 U/L (10-53)
[2017-03-14 21:30] LABS: ALKALINE PHOSPHATASE 100 U/L (45-117); TOTAL BILIRUBIN ADULT 0.6 MG/DL (0.2-1.0); TROPONIN I LESS THAN 0.02 NG/ML (0.02-0.05)
--- NOTE | 2017-03-14 22:09 | PD ---
HPI . CVA/TIA Chief Complaint: Numbness/Tingling Time Seen by Provider: 20:40 Travel History International Travel<30 days: No Contact w/Intl Traveler<30days: No Traveled to known affect area: No History of Present Illness HPI 41-year-old female history of lupus and Sjogren syndrome, prior CVA with left hemiparesis residual, notes feeling like she was drunk with incoordination, slight slurred speech, and blurred vision that occurred throughout the afternoon today. Patient denies any fevers chills or sweats, seizures or incontinence. Patient has had similar presentation with prior diagnosis of vasculitis. PFS Past Medical History Narrative Medical Past medical history reviewed Arthritis: Yes (RA) Asthma: No Autoimmune Disease: Yes (LUPUS, SJOGREN'S) Blood Disorders: Yes (CLOTTING STATES FROM LUPUS) Bipolar Disorder: Yes Anxiety: No Depression: No Heart Rhythm Problems: Yes (TACHYCARDIA) Cancer: No Cardiovascular Problems: Yes High Cholesterol: Yes (HX OF) Chemotherapy: Yes (2 YEARS AGO) Chest Pain: No Congestive Heart Failure: No COPD: No Cerebrovascular Accident: Yes Diabetes: No Diminished Hearing: No Deep Vein Thrombosis: Yes (LLE) Endocrine: Yes Gastrointestinal Disorders: Yes GERD: Yes Genitourinary: Yes Headaches: Yes Hepatitis: No Hiatal Hernia: No Hypertension: No Immune Disorder: Yes (LUPUS) Implanted Vascular Access Dvce: Yes Kidney Stones: Yes (seeneal Mercado) Medical other: Yes (STROKE) Musculoskeletal: Yes (FIBROMYALGIA, OSTEOPENIA) Psychiatric: No Reproductive: No Respiratory: Yes (PE) Immunizations Current: Yes Migraines: No Myocardial Infarction: No Radiation Therapy: No Renal Failure: Yes (STAGE 3 RENAL DISEASE BL) Seizures: Yes (2006) Sleep Apnea: No Thyroid Disease: Yes (HYPOTHYROIDSM ) Ulcer: No PNEUMOCCOCAL Vaccine (Year): 3 ?: Not LMP: 2005 Menopausal: Yes : 1 Para: 1 Tubal Ligation: Yes (2005) Past Surgical History Abdominal Surgery: Yes (APPENDECTOMY ) AICD: No Appendectomy: Yes Arteriovenous Shunt: No Body Medical Devices: [id number] Cardiac Surgery: No Section: Yes (1995) Cholecystectomy: No Ear Surgery: No Endocrine Surgery: No Eye Surgery: No Genitourinary Surgery: No Gynecologic Surgery: Yes (RIGHT OVARY REMOVAL, C SECTION) Insulin Pump: No Joint Replacement: No Neurologic Surgery: No Oral Surgery: No Pacemaker: No Thoracic Surgery: No Other Surgery: Yes (PORT PLACED AND REMOVED, new port placed 2012. ankle surgery 2016, ) Social History Alcohol Use: Yes (SOCIALLY) Tobacco Use: No Substance Use: No Allergies-Medications (Allergen,Severity, Reaction): Coded Allergies: Sulfa (Sulfonamide Antibiotics) (Unverified Allergy, Severe, Swelling, RASH, 01/05/17) erythromycin base (Unverified Allergy, Severe, THROAT CLOSES AND RASH, ) penicillin G (Unverified Allergy, Severe, THROAT CLOSES ,SWELLING, ) baclofen (Unverified Allergy, Intermediate, SLURRED SPEECH, 01/05/17) cephalexin (Unverified Adverse Reaction, Severe, WEAKNESS, 01/05/17) Reported Meds & Prescriptions Reported Meds & Active Scripts Active Xarelto (Rivaroxaban) 20 Mg Tab 20 Mg PO DAILY Cellcept (Mycophenolate Mofetil) 500 Mg Tab 500 Mg PO BID@,18 Synthroid (Levothyroxine Sodium) 50 Mcg Tab 50 Mcg PO MOTUWETHFRSA@06 Reported Tylenol-Codeine #3 (Acetaminophen-Codeine) 300-30 mg Tab 1 Tab PO Q4H PRN Cymbalta DR (Duloxetine HCl) 30 Mg Capdr 90 Mg PO DAILY Ferrous Sulfate 325 Mg (65 Mg Iron) Tablet 325 Mg PO DAILY Abilify (Aripiprazole) 10 Mg Tab 5 Mg PO DAILY Citracal + D3 Maximum (Calcium Citrate-Vitamin D) 315-250 Mg-Unit Tab 1-2 Tab PO BID Lyrica (Pregabalin) 200 Mg Cap 200 Mg PO TID Pilocarpine 5 Mg Tab 5 Mg PO TID Ditropan (Oxybutynin Chloride) 5 Mg Tab 5 Mg PO TID PRN Narrative Medication Allergies and medications reviewed Review of Systems Except as stated in HPI: all other systems reviewed are Neg General / Constitutional: No: Fever Eyes: Positive: Blurred Vision, No: Visual changes HENT: No: Headaches Cardiovascular: No: Chest Pain or Discomfort Respiratory: No: Shortness of Breath Gastrointestinal: No: Abdominal Pain Genitourinary: No: Dysuria Musculoskeletal: No: Pain Skin: No Rash Neurologic: Positive: Coordination Problem, Slurred Speech, No: Weakness Psychiatric: No: Depression Endocrine: No: Polydipsia Hematologic/Lymphatic: No: Easy Bruising Physical Exam Narrative GENERAL: Awake and alert oriented 3 no acute distress. Tachycardic at 110 bpm , afebrile SKIN: Warm and dry. Color is normal no diaphoresis cyanosis or pallor HEAD: Atraumatic. Normocephalic. EYES: Pupils equal and round. No scleral icterus. No injection or drainage. ENT: No nasal bleeding or discharge. Mucous membranes pink and moist. NECK: Trachea midline. No JVD. Supple full range of motion. No carotid bruits CARDIOVASCULAR: S1 and S2, tachycardia regular rhythm RESPIRATORY: No accessory muscle use. Clear to auscultation. Breath sounds equal bilaterally. GASTROINTESTINAL: Abdomen soft, non-tender, nondistended. Hepatic and splenic margins not palpable. MUSCULOSKELETAL: Extremities without clubbing, cyanosis, or edema. No obvious deformities. NEUROLOGICAL: Awake and alert. Left hemiparesis no change residual from prior CVA, blurred vision as per patient subjectively, mild slurred speech/dysarthria PSYCHIATRIC: Appropriate mood and affect; insight and judgment normal. Data Data Last Documented VS Vital Signs Date Time Temp Pulse Resp B/P (MAP) Pulse Ox O2 Delivery O2 Flow Rate FiO2 03/14/17 20:32 99.8 98 16 133/90 (104) 99 Orders Orders Electrocardiogram (03/14/17 20:40) Prothrombin Time / Inr (Pt) (03/14/17 20:40) Act Partial Throm Time (Ptt) (03/14/17 20:40) Complete Blood Count With Diff (03/14/17 20:40) Comprehensive Metabolic Panel (03/14/17 20:40) Creatine Kinase (Cpk) (03/14/17 20:40) Troponin I (03/14/17 20:40) Urinalysis - C+S If Indicated (03/14/17 20:40) Ct Brain W/O Iv Contrast(Rout) (03/14/17 20:40) Chest, Single Ap (03/14/17 20:40) Ecg Monitoring (03/14/17 20:40) Iv Access Insert/Monitor (03/14/17 20:40) Oximetry (03/14/17 20:40) Sodium Chloride 0.9% Flush (Ns Flush) (03/14/17 20:45) Westergren Sedimentation Rate (03/14/17 20:40) Methylprednisolone So Succ Inj (Solumedr (03/14/17 20:45) Sodium Chlorid 0.9% 500 Ml Inj (Ns 500 M (03/14/17 20:45) Admit Order (Ed Use Only) (03/14/17 22:33) Mri Brain W&W/O Contrast (03/14/17 ) Mra Carotids W Contrast (03/14/17 ) Labs Laboratory Tests Test 03/14/17 20:44 White Blood Count 4.4 TH/MM3 Red Blood Count 4.03 MIL/MM3 Hemoglobin 12.1 GM/DL Hematocrit 36.1 % Mean Corpuscular Volume 89.6 FL Mean Corpuscular Hemoglobin 30.0 PG Mean Corpuscular Hemoglobin Concent 33.5 % Red Cell Distribution Width 13.8 % Platelet Count 234 TH/MM3 Mean Platelet Volume 7.8 FL Neutrophils (%) (Auto) 64.2 % Lymphocytes (%) (Auto) 25.0 % Monocytes (%) (Auto) 8.1 % Eosinophils (%) (Auto) 1.9 % Basophils (%) (Auto) 0.8 % Neutrophils # (Auto) 2.8 TH/MM3 Lymphocytes # (Auto) 1.1 TH/MM3 Monocytes # (Auto) 0.4 TH/MM3 Eosinophils # (Auto) 0.1 TH/MM3 Basophils # (Auto) 0.0 TH/MM3 CBC Comment DIFF FINAL Differential Comment Erythrocyte Sedimentation Rate 43 mm/hr Prothrombin Time 12.9 SEC Prothromb Time International Ratio 1.3 RATIO Activated Partial Thromboplast Time 41.3 SEC Blood Urea Nitrogen 11 MG/DL Creatinine 1.20 MG/DL Random Glucose 86 MG/DL Total Protein 8.0 GM/DL Albumin 4.0 GM/DL Calcium Level 9.0 MG/DL Alkaline Phosphatase 100 U/L Aspartate Amino Transf (AST/SGOT) 13 U/L Alanine Aminotransferase (ALT/SGPT) 18 U/L Total Bilirubin 0.6 MG/DL Sodium Level 138 MEQ/L Potassium Level 3.7 MEQ/L Chloride Level 106 MEQ/L Carbon Dioxide Level 24.9 MEQ/L Anion Gap 7 MEQ/L Estimat Glomerular Filtration Rate 49 ML/MIN Total Creatine Kinase 107 U/L Troponin I LESS THAN 0.02 NG/ML MDM Medical Decision Making Medical Screen Exam Complete: Yes Emergency Medical Condition: Yes Medical Record Reviewed: Yes Differential Diagnosis CVA/TIA, vasculitis Narrative Course Patient treated presumptively for clinical dehydration and possible vasculitis by symptomatology at presentation via IV fluids and IV steroids. CT brain negative for acute CVA. Sedimentation rate 43 Patient's symptomatology nearly abated by the time CT resulted. Case discussed with Dr. Charles from neurology, care plan developed MRI of the brain with and without contrast, MRA of the carotid/vertebrals, admitted for observation Case discussed with Dr. Kingsley from [facility], admitted to Dr. Tenzin Wall's service Diagnosis Primary Impression: TIA (transient ischemic attack) Qualified Codes: G45.9 - Transient cerebral ischemic attack, unspecified Additional Impression: Vasculitis Admitting Information Admitting Physician Requests: Observation Condition: Td Sheriff MD Mar 14, 2017 22:09
[2017-03-14] MEDS ORDERED: PILL SPLITTER OTHER PRN (22:45)
[2017-03-14] MEDS ORDERED: GADODIAMIDE PF 287 MG/ML 20 ML VIAL (for RAD MRI) IVCONTRAST ONE (23:05)
[2017-03-14 23:20] VITALS: BP 128/85; PULSE 92; RESP 16; O2SAT 99
--- NOTE | 2017-03-14 23:54 | RADRPT ---
EXAM DATE/TIME: 03/14/2017 22:55 [facility] COMPARISON: CT BRAIN W/O CONTRAST, March 14, 2017, 20:58. Report of MRI exam dated 11/12/2011 INDICATIONS : Generalized weakness. CONTRAST: 14 cc Omniscan (gadodiamide) IV MEDICAL HISTORY : Cerebrovascular disease. Gastroesophageal reflux disease. Lupus. Renal failure. SURGICAL HISTORY : Tubal ligation. IVC Filter placement. Appendectomy. Right shoulder replacement. ENCOUNTER: Initial ACUITY: 1 day PAIN SCORE: 0/10 LOCATION: cranial TECHNIQUE: Multiplanar, multisequence MRI of the brain was performed both prior to and following the administrat ion of paramagnetic contrast. FINDINGS: CEREBRUM: Large region of encephalomalacia in the right posterior parietal mid high convexities similar to prio r report. Focal region of increased T2 and T1 signal in the posterior parietal high convexities corre sponding to faint calcifications on CT exam. Stable ex-vacuo dilatation of the right lateral ventricl e. The ventricles are otherwise stable. No evidence of midline shift, mass lesion, hemorrhage or acu te infarction. No extraaxial fluid collections are seen. The pituitary gland and suprasellar cister n are normal in configuration. WHITE MATTER: No significant signal abnormalities are seen in the white matter. POSTERIOR FOSSA: The cerebellum and brainstem are intact. The 4th ventricle is midline. The cerebellopontine angle is unremarkable. The cerebellar tonsils are normal in position. DIFFUSION IMAGING: No focal areas of restricted diffusion are seen. No evidence of acute infarction. EXTRACRANIAL: The visualized portions of the orbits and paranasal sinuses are unremarkable. POST-CONTRAST: No abnormal areas of parenchymal or dural enhancement. No evidence of blood-brain barrier breakdown. CONCLUSION: 1. Stable old right parietal infarct. 2. No acute abnormality or abnormal enhancement/mass. Arian Urbina MD on March 14, 2017 at 23:46 Board Certified Radiologist. This report was verified electronically.
--- NOTE | 2017-03-14 23:56 | RADRPT ---
EXAM DATE/TIME: 03/14/2017 22:55 [facility] COMPARISON: No previous studies available for comparison. INDICATIONS : Weakness. CONTRAST: 14 cc Omniscan (gadodiamide) IV MEDICAL HISTORY : Cerebrovascular disease. Gastroesophageal reflux disease. Lupus. SURGICAL HISTORY : Tubal ligation. Appendectomy. IVC Filter placement. right shoulder replacement. ENCOUNTER: Initial ACUITY: 1 day PAIN SCORE: 0/10 LOCATION: cranial Percent stenosis is calculated using the diameter of the stenotic region over the diameter of the nor mal distal internal carotid artery. TECHNIQUE: Bolus infused MRA of the extracranial circulation was performed using a neurovascular coil. Post pro cessing was performed including rotating subvolume maximum intensity projections of each carotid alcides ry, rotating full volume maximum intensity projections of both carotid arteries, sagittal and coronal sliding thin slab reformations of each carotid artery, and left oblique sliding thin slab reformatio n through the aortic arch to include the origin of the arch branch vessels. FINDINGS: AORTIC ARCH: There is a three vessel origin of the great vessels from the aorta. No evidence of ostial narrowing. RIGHT CAROTID: The common carotid artery is intact. The carotid bulb has a normal configuration without ulceration or narrowing. The internal carotid artery lumen is smooth without stenosis. The external carotid [place] is intact. LEFT CAROTID: The common carotid artery is intact. The carotid bulb has a normal configuration without ulceration or narrowing. The internal carotid artery lumen is smooth without stenosis. The external carotid [place] is intact. VERTEBRALS: The vertebral arteries have a symmetric diameter. No stenotic lesions are seen. CONCLUSION: 1. Patent bilateral carotid arteries without significant flow-limiting stenosis. 2. Patent bilateral vertebral arteries without significant flow-limiting stenosis. Arian Urbina MD on March 14, 2017 at 23:52 Board Certified Radiologist. This report was verified electronically.
[2017-03-15] MEDS ORDERED: ACETAMINOPHEN 325 MG TAB PO ONE
[2017-03-15 00:23] LABS: AMORPHOUS SEDIMENT, URINE RARE; BACTERIA, URINE MANY /hpf; BILIRUBIN, URINE NEG (NEG); BLOOD, URINE SMALL (NEG); GLUCOSE,URINE NEG (NEG); KETONE, URINE NEG (NEG); NITRITE,URINE NEG (NEG); SQUAMOUS EPITHELIAL CELL URINE 3 /hpf (0-5); URINE COLOR LIGHT-YELLOW (YELLW/STRAW); URINE LEUKOCYTE ESTERASE LARGE (NEG)
[2017-03-15 00:47] VITALS: BP 116/69; PULSE 86; RESP 18; TEMP 98; O2SAT 96
[2017-03-15 03:38] VITALS: BP 115/75; PULSE 85; RESP 17; TEMP 97.9; O2SAT 95
[2017-03-15 03:57] VITALS: PULSE 62
[2017-03-15] MEDS ORDERED: MYCOPHENOLATE MOFETIL 500 MG TAB PO SCH (06:00)
[2017-03-15 08:13] VITALS: BP 115/58; PULSE 69; RESP 20; TEMP 98.6; O2SAT 96
[2017-03-15] MEDS: ACETAMINOPHEN 325 MG TAB PO PRN ×2 (08:59→14:47)
[2017-03-15] MEDS: PREGABALIN 100 MG CAP PO SCH ×2 (09:00→13:33)
[2017-03-15] MEDS ORDERED: methylPREDNISolone SOD SUCC 125 MG/2 ML VIAL IV PUSH SCH (09:00)
[2017-03-15] MEDS ORDERED: PNEUMOCOCCAL POLYVALENT INJ 25 MCG/0.5 ML SYR IM ONE (09:00)
[2017-03-15] MEDS ORDERED: ARIPiprazole 10 MG TAB PO SCH ×2 (09:00→18:00)
[2017-03-15] MEDS ORDERED: DULoxetine HCl DR 30 MG CAP PO SCH (09:00)
[2017-03-15] MEDS ORDERED: RIVAROXABAN 20 MG TAB PO SCH ×2 (09:00→18:00)
[2017-03-15] MEDS: PILOCARPINE HCL 5 MG TAB PO SCH ×2 (10:15→13:33)
--- NOTE | 2017-03-15 10:19 | HHI.HP ---
HPI Service [facility] Primary Care Physician Geovani Ortega MD Admission Diagnosis CVA/TIA vs Vasculitis Travel History International Travel<30 Days: Yes ([place]) Contact w/Intl Traveler <30 Da: Yes Name of Country Traveled to: [place] Traveled to Known Affected Are: No (unknown) History of Present Illness 41 y/o F with h/o lupus, lupus cerebritis Sjogren syndrome, and prior right MCA CVA in 2006 with residual left sided weakness present to the Er with c/o incoordination, slight slurred speech, and blurred vision. Symptoms started about 6 hours prior to presentation to the ER. Pt started on IV solumedrol with clinical improvement. MRI of brain (03/14) showed no acute infarction. Pt feels back to baseline and requests discharge. Review of Systems Constitutional: DENIES: Diaphoretic episodes, Fatigue, Fever, Weight gain, Weight loss, Chills, Dizziness, Change in appetite, Night Sweats Endocrine: DENIES: Heat/cold intolerance, Polydipsia, Polyuria, Polyphagia Eyes: DENIES: Blurred vision, Diplopia, Eye inflammation, Eye pain, Vision loss , Photosensitivity, Double Vision Ears, nose, mouth, throat: DENIES: Tinnitus, Hearing loss, Vertigo, Nasal discharge, Oral lesions, Throat pain, Hoarseness, Ear Pain, Running Nose, Epistaxis, Sinus Pain, Toothache, Odynophagia Respiratory: DENIES: Apneas, Cough, Snoring, Wheezing, Hemoptysis, Sputum production, Shortness of breath Cardiovascular: DENIES: Chest pain, Palpitations, Syncope, Dyspnea on Exertion , PND, Lower Extremity Edema, Orthopnea, Claudication Gastrointestinal: DENIES: Abdominal pain, Black stools, Bloody stools, BRB per rectum, Constipation, Diarrhea, GERD, Nausea, Reflux, Vomiting, Difficulty Swallowing, Anorexia Genitourinary: DENIES: Urinary frequency, Urinary incontinence, Urgency, Hematuria, Dysuria, Nocturia Musculoskeletal: DENIES: Joint pain, Muscle aches, Stiffness, Joint Swelling, Back pain, Neck pain Integumentary: DENIES: Abnormal pigmentation, Pruritus, Rash, Nail changes, Breast masses, Breast skin changes, Nipple discharge Hematologic/lymphatic: DENIES: Bruising, Lymphadenopathy Immunologic/allergic: DENIES: Eczema, Urticaria Neurologic: COMPLAINS OF: Abnormal gait, DENIES: Headache, Localized weakness, Paresthesias, Seizures, Speech Problems, Tremor, Poor Balance Psychiatric: DENIES: Anxiety, Confusion, Mood changes, Depression, Hallucinations, Agitation, Suicidal Ideation, Homicidal Ideation, Delusions, History of Bipolar, History of Schizophrenia Past Family Social History Past Medical History 1) lupus, with history of lupus cerebritis 2) rheumatoid arthritis 3) Raynaud's phenomenon 4) Sjogren's syndrome 5) right MCA CVA with left hemiparesis in 2006 6) history of DVT and pulmonary emboli in 2002 7) nephrolithiasis 8) bipolar/depression/anxiety 9) hypothyroidism 10) fibromyalgia 11) osteopenia 12) chronic kidney disease, stage III 13) GERD Past Surgical History 1. History of Appendectomy 2. History of Arthroscopy Knee 3. History of Bronchoscopy (Diagnostic) 4. History of Section 5. History of Complete Colonoscopy 6. History of Cystoscopy With Insertion Of Ureteral Stent 7. History of Diagnostic Esophagogastroduodenoscopy 8. History of Inj Of Subst Other Than Anes/Contrast/Neurol Solns Epidural 9. History of Interruption Inferior [place] Filter Placement 10. History of Knee Surgery 11. History of Lithotripsy - Whole Body (Extracorporeal Shock Wave) 12. History of Oophorectomy 13. History of Oral Surgery Tooth Extraction 14. History of Percutaneous Portal Vein Catheter Placement 15. History of Shoulder Arthroplasty Reported Medications Reported Meds & Active Scripts Active Xarelto (Rivaroxaban) 20 Mg Tab 20 Mg PO DAILY Cellcept (Mycophenolate Mofetil) 500 Mg Tab 500 Mg PO BID@06,18 Synthroid (Levothyroxine Sodium) 50 Mcg Tab 50 Mcg PO MOTUWETHFRSA@06 Reported Tylenol-Codeine #3 (Acetaminophen-Codeine) 300-30 mg Tab 1 Tab PO Q4H PRN Cymbalta DR (Duloxetine HCl) 30 Mg Capdr 90 Mg PO DAILY Ferrous Sulfate 325 Mg (65 Mg Iron) Tablet 325 Mg PO DAILY Abilify (Aripiprazole) 10 Mg Tab 5 Mg PO DAILY Citracal + D3 Maximum (Calcium Citrate-Vitamin D) 315-250 Mg-Unit Tab 1-2 Tab PO BID Lyrica (Pregabalin) 200 Mg Cap 200 Mg PO TID Pilocarpine 5 Mg Tab 5 Mg PO TID Ditropan (Oxybutynin Chloride) 5 Mg Tab 5 Mg PO TID PRN Allergies: Coded Allergies: Sulfa (Sulfonamide Antibiotics) (Unverified Allergy, Severe, Swelling, RASH, 01/05/17) erythromycin base (Unverified Allergy, Severe, THROAT CLOSES AND RASH, ) penicillin G (Unverified Allergy, Severe, THROAT CLOSES ,SWELLING, ) baclofen (Unverified Allergy, Intermediate, SLURRED SPEECH, 01/05/17) cephalexin (Unverified Adverse Reaction, Severe, WEAKNESS, 01/05/17) Active Ordered Medications Reported Meds & Active Scripts Active Xarelto (Rivaroxaban) 20 Mg Tab 20 Mg PO DAILY Cellcept (Mycophenolate Mofetil) 500 Mg Tab 500 Mg PO BID@, Synthroid (Levothyroxine Sodium) 50 Mcg Tab 50 Mcg PO MOTUWETHFRSA@06 Reported Tylenol-Codeine #3 (Acetaminophen-Codeine) 300-30 mg Tab 1 Tab PO Q4H PRN Cymbalta DR (Duloxetine HCl) 30 Mg Capdr 90 Mg PO DAILY Ferrous Sulfate 325 Mg (65 Mg Iron) Tablet 325 Mg PO DAILY Abilify (Aripiprazole) 10 Mg Tab 5 Mg PO DAILY Citracal + D3 Maximum (Calcium Citrate-Vitamin D) 315-250 Mg-Unit Tab 1-2 Tab PO BID Lyrica (Pregabalin) 200 Mg Cap 200 Mg PO TID Pilocarpine 5 Mg Tab 5 Mg PO TID Ditropan (Oxybutynin Chloride) 5 Mg Tab 5 Mg PO TID PRN Family History She has 2 brothers with coronary artery disease. They both had myocardial infarctions in their early 40s and had stents placed Social History - (but recently ) - Disabled secondary to CVA - Occasional alcoholic beverage - No tobacco - No illicit street drugs Physical Exam Vital Signs Vital Signs Date Time Temp Pulse Resp B/P (MAP) Pulse Ox O2 Delivery O2 Flow Rate FiO2 03/15/17 08:13 98.6 69 20 115/58 (77) 96 03/15/17 03:57 62 03/15/17 03:38 97.9 85 17 115/75 (88) 95 03/15/17 00:47 98.0 86 18 116/69 (85) 96 03/15/17 00:23 03/14/17 23:20 92 16 128/85 (99) 99 03/14/17 20:32 99.8 98 16 133/90 (104) 99 Physical Exam GENERAL: This is a well-nourished, well-developed patient, in no apparent distress. SKIN: No rashes, ecchymoses or lesions. Cool and dry. HEAD: Atraumatic. Normocephalic. No temporal or scalp tenderness. EYES: Pupils equal round and reactive. Extraocular motions intact. No scleral icterus. No injection or drainage. ENT: Nose without bleeding, purulent drainage or septal hematoma. Throat without erythema, tonsillar hypertrophy or exudate. Uvula midline. Airway patent. NECK: Trachea midline. No JVD or lymphadenopathy. Supple, nontender, no meningeal signs. CARDIOVASCULAR: Regular rate and rhythm without murmurs, gallops, or rubs. RESPIRATORY: Clear to auscultation. Breath sounds equal bilaterally. No wheezes , rales, or rhonchi. GASTROINTESTINAL: Abdomen soft, non-tender, nondistended. No hepato-splenomegaly , or palpable masses. No guarding. MUSCULOSKELETAL: Extremities without clubbing, cyanosis, or edema. No joint tenderness, effusion, or edema noted. No calf tenderness. Negative Homans sign bilaterally. NEUROLOGICAL: Awake and alert. Cranial nerves II through XII intact. Motor and sensory grossly within normal limits. Five out of 5 muscle strength in all muscle groups. Normal speech. Laboratory Laboratory Tests Test 03/14/17 20:44 03/14/17 23:50 03/15/17 07:20 White Blood Count 4.4 Red Blood Count 4.03 Hemoglobin 12.1 Hematocrit 36.1 Mean Corpuscular Volume 89.6 Mean Corpuscular Hemoglobin 30.0 Mean Corpuscular Hemoglobin Concent 33.5 Red Cell Distribution Width 13.8 Platelet Count 234 Mean Platelet Volume 7.8 Neutrophils (%) (Auto) 64.2 Lymphocytes (%) (Auto) 25.0 Monocytes (%) (Auto) 8.1 Eosinophils (%) (Auto) 1.9 Basophils (%) (Auto) 0.8 Neutrophils # (Auto) 2.8 Lymphocytes # (Auto) 1.1 Monocytes # (Auto) 0.4 Eosinophils # (Auto) 0.1 Basophils # (Auto) 0.0 CBC Comment DIFF FINAL Differential Comment Erythrocyte Sedimentation Rate 43 40 Prothrombin Time 12.9 Prothromb Time International Ratio 1.3 Activated Partial Thromboplast Time 41.3 Blood Urea Nitrogen 11 Creatinine 1.20 Random Glucose 86 Total Protein 8.0 Albumin 4.0 Calcium Level 9.0 Alkaline Phosphatase 100 Aspartate Amino Transf (AST/SGOT) 13 Alanine Aminotransferase (ALT/SGPT) 18 Total Bilirubin 0.6 Sodium Level 138 Potassium Level 3.7 Chloride Level 106 Carbon Dioxide Level 24.9 Anion Gap 7 Estimat Glomerular Filtration Rate 49 Total Creatine Kinase 107 Troponin I LESS THAN 0.02 Urine Color LIGHT-YELLOW Urine Turbidity HAZY Urine pH 6.0 Urine Specific [place] 1.004 Urine Protein NEG Urine Glucose (UA) NEG Urine Ketones NEG Urine Occult Blood SMALL Urine Nitrite NEG Urine Bilirubin NEG Urine Urobilinogen LESS THAN 2.0 Urine Leukocyte Esterase LARGE Urine RBC 22 Urine WBC 109 Urine Squamous Epithelial Cells 3 Urine Amorphous Sediment RARE Urine Bacteria MANY Microscopic Urinalysis Comment CATH-CULTURE IND Date/Time Source Procedure Growth Status 03/14/17 23:50 Urine Catheterized Urine Urine Culture Pending Received Result Diagram: 03/14/[id number]/14/172043 Imaging Last Impressions Head CT 03/14/172039 Signed Impressions: Service Date/Time: Tuesday, March 14, 2017 20:58 - CONCLUSION: 1. Right-sided infarct again seen. 2. No acute intracranial abnormality. Edu Lozano MD Chest X-Ray 03/14/172039 Signed Impressions: Service Date/Time: Tuesday, March 14, 2017 20:48 - CONCLUSION: No acute disease. Edu Lozano MD Neck Magnetic Resonance Angiography 03/14/17 0000 Signed Impressions: Service Date/Time: Tuesday, March 14, 2017 22:55 - CONCLUSION: 1. Patent bilateral carotid arteries without significant flow-limiting stenosis. 2. Patent bilateral vertebral arteries without significant flow-limiting stenosis. Arian Urbina MD Brain MRI 03/14/17 0000 Signed Impressions: Service Date/Time: Tuesday, March 14, 2017 22:55 - CONCLUSION: 1. Stable old right parietal infarct. 2. No acute abnormality or abnormal enhancement/mass. MD Christiano Dodson VTE Risk Assessment Caprini VTE Risk Assessment: Mod/High Risk (score >= 2) Caprini Risk Assessment Model Point Value = 1 Point Value = 2 Point Value = 3 Point Value = 5 Age 41-60 Minor surgery BMI > 25 kg/m2 Swollen legs Varicose veins or History of unexplained or recurrent spontaneous Oral contraceptives or hormone replacement Sepsis (< 1 month) Serious lung disease, including pneumonia (< 1 month) Abnormal pulmonary function Acute myocardial infarction Congestive heart failure (< 1 month) History of inflammatory bowel disease Medical patient at bed rest Age 61-74 Arthroscopic surgery Major open surgery (> 45 min) Laparoscopic surgery (> 45 min) Malignancy Confined to bed (> 72 hours) Immobilizing plaster cast Central venous access Age >= 75 History of VTE Family history of VTE Factor V Leiden Prothrombin 40032B Lupus anticoagulant Anticardiolipin antibodies Elevated serum homocysteine Heparin-induced thrombocytopenia Other congenital or acquired thrombophilia Stroke (< 1 month) Elective arthroplasty Hip, pelvis, or leg fracture Acute spinal cord injury (< 1 month) Prophylaxis Regimen Total Risk Factor Score Risk Level Prophylaxis Regimen 0-1 Low Early ambulation 2 Moderate Order ONE of the following: *Sequential Compression Device (SCD) *Heparin 5000 units SQ BID 3-4 Higher Order ONE of the following medications: *Heparin 5000 units SQ TID *Enoxaparin/Lovenox 40 mg SQ daily (WT < 150 kg, CrCl > 30 mL/min) *Enoxaparin/Lovenox 30 mg SQ daily (WT < 150 kg, CrCl > 10-29 mL/min) *Enoxaparin/Lovenox 30 mg SQ BID (WT < 150 kg, CrCl > 30 mL/min) AND/OR *Sequential Compression Device (SCD) 5 or more Highest Order ONE of the following medications: *Heparin 5000 units SQ TID (Preferred with Epidurals) *Enoxaparin/Lovenox 40 mg SQ daily (WT < 150 kg, CrCl > 30 mL/min) *Enoxaparin/Lovenox 30 mg SQ daily (WT < 150 kg, CrCl > 10-29 mL/min) *Enoxaparin/Lovenox 30 mg SQ BID (WT < 150 kg, CrCl > 30 mL/min) AND *Sequential Compression Device (SCD) Assessment and Plan Problem List: (1) Altered mental status ICD Codes: R41.82 - Altered mental status, unspecified Status: Resolved Plan: - Pt is a 41 y/o F with c/o lupus, lupus cerebritis, Sjgren Syndrome, CVA in 2006 with residual weakness, and bipolar disorder - Pt presented to the ER with c/o discoordinate, slurred speech,and blurred vision - CT brain (03/14) --> old right infarct - MRI brain (03/14) --> stable old right parietal infarct - Neck MRA (03/14) --> No acute findings - Pt started on IV solumedrol with clinical improvement, change to PO Pt will be discharged on prednisone taper - Pt to f/u with her Solar Energy Systems Engineer, Dr. Alvarez, outpt - Case d/w Dr. Charles, Neurology (03/15) - Pt has UTI. Start levaquin 500mg daily. Follow culture - supportive care - PT evaluation - DVT prophylaxis - MRA (03/15/17) --> b/l high grade stenosis at A1 segment, Right M1 with high grade stenosis no change from MRA 2012. Case reviewed with Radiology - EEG --> done, but not yet interpreted - see discharge orders (2) Lupus ICD Codes: L93.0 - Discoid lupus erythematosus Status: Chronic Plan: - cellcept (3) Sjogrens syndrome ICD Codes: M35.00 - Sjogrens syndrome Status: Acute Plan: - pilocarpine (4) Bipolar disorder ICD Codes: F31.9 - Bipolar disorder Status: Acute Plan: - continue cymbalta (5) Hypothyroidism ICD Codes: E03.9 - Hypothyroidism Status: Chronic Plan: - levothyroxine (6) History of CVA (cerebrovascular accident) ICD Codes: Z86.73 - Personal history of transient ischemic attack (TIA), and cerebral infarction without residual deficits Status: Acute Plan: - h/o PE and sreedhar filter - continue xarelto Problem Qualifiers (1) Altered mental status: Qualified Codes: R41.82 - Altered mental status, unspecified (2) Lupus: Qualified Codes: L93.0 - Discoid lupus erythematosus (3) Sjogrens syndrome: Qualified Codes: M35.00 - Sicca syndrome, unspecified (4) Hypothyroidism: Qualified Codes: E03.9 - Hypothyroidism, unspecified Jayden Wall DO Mar 15, 2017 10:19
--- NOTE | 2017-03-15 11:52 | MB ---
cc: DALIA DEWITT M.D. DATE OF CONSULTATION: 03/15/2017. The patient is a 41-year-old right-handed woman with a history of Sj gren's, Lupus, right middle cerebral artery infarct, right middle cerebral artery occlusion. I actually saw her back in 2011. She had a history of a positive rheumatoid factor and stroke in 2006 with the right middle cerebral artery questionable [place], Cellcept, and sees Dr. Alvarez for her rheumatoid problems. She had been on coumadin. She had a DVT when she was off coumadin. There have been no miscarriages. She does not usually get headaches. No definite lupus cerebritis. Some renal insufficiency. At that time in 2012, she felt a little foggy in her head and could not get out quite the right words putting wrong words in sentences. A little bit of blurry vision. I note she had a history of medullary sponge kidney disease, stage III renal failure, chronic left-sided weakness, thyroid disease, stented the kidneys, kidney stones, ALLERGIES: 1. ERYTHROMYCIN. 2. PENICILLIN. 3. SULFA. 4. BACLOFEN. 5. VOLTAREN GEL. At that time, she was on coumadin and Cymbalta along with thyroid medicines. Her workup in the past showed normal sedimentation rate back in 2006. Creatinine of 1.2. Another creatinine of 0.9. A low B12 in the past with normal methylmalonic acid. Rheumatoid factor of 708. An DYLAN of 1:1280 back in 2006. A negative ANCA. Anticardiolipin antibody being negative. Sj gren's antibody positive at 2067. RPR negative. Lupus anticoagulant normal. Protein-C and S normal. Antithrombin III normal. Normal echocardiogram in 2006. CT of the neck normal back in 2006. CTA of the chest negative. Transesophageal echocardiogram in 2006 was normal. I recommended a Holter monitor. She says she has had a headache about once a month for the last three months and then she yesterday she felt like her vision was blurry and that she was staggering more than usual and falling over to the left and she came into the hospital. The emergency room doctor thought she was having a lupus flair and he gave her 125 milligrams of Solu-Medrol and her blurry vision resolved. PAST MEDICAL HISTORY: Past medical history as above, also: 1. History of fibromyalgia. 2. Bipolar. 3. Depression. 4. Anxiety. She has been off her Xanax because she had overdosed on it. 5. Recent right ankle fracture she tells me. MEDICATIONS AT HOME: 1. Xarelto 20 milligrams a day. 2. Cellcept 500 twice a day. 3. Synthroid. 4. Tylenol #3. 5. Cymbalta 30 a day, although she told me she was not taking anything for her depression or anxiety. 6. Iron. 7. Abilify 5 milligrams a day. 8. Citrucel. 9. Lyrica 200 three times a day. 10. Pilocarpine. 11. Ditropan. ALLERGIES: 1. CEPHALEXIN. 2. BACLOFEN. 3. PENICILLIN. 4. ERYTHROMYCIN. 5. SULFA. REVIEW OF SYSTEMS: In the past, no hypertension, diabetes, hypercholesterolemia, VA CABG, known cardiac arrhythmia, hepatic, pulmonary disease, ulcer cancer or known seizure. PHYSICAL EXAMINATION: VITAL SIGNS: Afebrile, 69, 20, 115/58. NECK: There are no carotid bruits. HEART: Regular rhythm. I do not detect a murmur. NEUROLOGICAL EXAMINATION: Vision is a bit off and it always has been in the past. She has a left homonymous hemianopsia. Her visual acuity is 20/40. She sees better to the right than to the left. Extraocular movements intact without nystagmus. There is a slight left facial droop. Tongue was midline. Decreased sensation left face compared to the right. She is 0/5 on the left upper extremity, normal in the right upper extremity and right lower extremity. Left lower extremity is about a 3+ to 4-/5. Toes were upgoing on the left and downgoing on the right. She had a slight left hemisensory loss, not so much in the left leg as in the arm. Speech is fluent. She is not aphasic. Temples she says are slightly tender. LABORATORY DATA: Sedimentation rate was 43. A repeat sedimentation rate was 40. CBC is normal. Sedimentation rate in the past has been anywhere from 27 to in November last year 40. ABG was normal in June of last year. Creatinine is 1.2, otherwise basic metabolic profile is normal. Liver function tests are normal. Troponin is negative. Albumin is normal. B12 was 156 back in 2011. TSH was normal in the past year. Methylmalonic acid was normal in 2012. Thiamine has been normal in the past. C-reactive protein was 0.77 in November of last year. Ammonia level has been normal in the past. She is heterozygous for Factor V Leiden. In 2012, lupus anticoagulant was detected in one out of two tests. Urine drug screen positive for benzodiazepines and opiates back in June of last year. RPR has been negative. Rheumatoid factor was negative, actually in November of last year. DYLAN was negative at that time. Anticardiolipin antibody negative back in 2012. Urinalysis on this admission: Large amount of leukocyte esterase, 109 white cells. IMAGING STUDIES: MRI of the brain here shows no new infarct. MRA of the neck was normal. It looks like intracranially the right middle cerebral artery is occluded, which it was from reports back in 2012, but I cannot pull those films up. Her last echocardiogram in 2011 was normal. She had a Holter monitor done back in 2011 that was normal. IMPRESSION: I thought she overall looked well neurologically. She said her temples were a little tender but they did not appear to be greatly or overly tender. RECOMMENDATIONS / PLAN: I would recheck her C-reactive protein 2. Continue her on her Xarelto. 3. She does have urinary tract infection and that could explain a lot of her problems. In fact, she has greater than 100,000 gram-negative rods. 4. I am not sure there is much going on new neurologically. I do want to check an MRA of the [place] to document that. 5. I think she could be discharged to follow up with her ribbon blocker. She thinks her Sj gren's is worse because her mouth has been dry and she has been thirsty and she does have a chapped and slightly bloody lower lip, or it looks dry. 6. Phillip her up and have physical therapy ambulate her. 7. Check her standing blood pressure. 8. Re-check her B12 level and give her a B12 shot. 9. We can check an EEG. I think she can probably be discharged tomorrow. MD RHONDA Wolfe/ADAM /11:08 AM /11:27 AM
[2017-03-15] MEDS ORDERED: LEVOFLOXACIN 500 MG TAB PO SCH (12:00)
[2017-03-15 12:03] VITALS: BP 116/60; PULSE 78; RESP 20; TEMP 97.9; O2SAT 96
--- NOTE | 2017-03-15 13:13 | EKG ---
Date Performed: 03/14/2017 Time Performed: 20:33:03 PTAGE: 41 years EKG: Sinus rhythm NONSPECIFIC T-WAVE ABNORMALITY ABNORMAL ECG Since PREVIOUS TRACING , no significant change noted PREVIOUS TRACIN01/05/2017 10.04.36 DOCTOR: Jose Harkins Interpretating Date/Time 03/15/2017 13:12:37
[2017-03-15 13:50] LABS: C-REACTIVE PROTEIN 1.9 MG/DL (0.00-0.30)
[2017-03-15] MEDS ORDERED: LEVA500T33 PO (14:44)
[2017-03-15] MEDS ORDERED: PRED20 PO (14:51)
--- NOTE | 2017-03-15 14:54 | HHI.DCPOC ---
Discharge Care Plan Diagnosis: (1) Altered mental status (2) Lupus Goals to Promote Your Health * To prevent worsening of your condition and complications * To maintain your health at the optimal level Directions to Meet Your Goals Take your medications as prescribed Follow your dietary instruction Follow activity as directed Keep your appointments as scheduled Take your immunizations and boosters as scheduled If your symptoms worsen call your PCP, if no PCP go to Urgent Care Center or Emergency Room Smoking is Dangerous to Your Health. Avoid second hand smoke Call the 24-hour hour crisis hotline for domestic abuse at Jayden Wall DO Mar 15, 2017 14:54
--- NOTE | 2017-03-15 15:04 | RADRPT ---
EXAM DATE/TIME: 03/15/2017 13:24 [facility] COMPARISON: No previous studies available for comparison. INDICATIONS : Weakness. MEDICAL HISTORY : Lupus. Renal insufficiency, chronic. Cerebrovascular disease. SURGICAL HISTORY : IVC Filter placement. Appendectomy. Tubal ligation. Right shoulder replacement. ENCOUNTER: Initial ACUITY: 2 day PAIN SCORE: 0/10 LOCATION: cranial Please note a normal MRA of the brain does not entirely exclude the possibility of a small aneurysm, nor the possibility of distal intracranial vessel disease. TECHNIQUE: 3D time of flight MRA was performed. Source images, multiplanar STS MIP, and 3D volume MIP reconstru ctions were reviewed. FINDINGS: There is significant narrowing of the right A-1 and M1 branches with diminished flow involving the ri ght MCA diffusely could be due to spasm and/or chronic atherosclerotic changes, or collagen vascular disease. There is also significant narrowing of the left A-1 could be due to spasm and/or chronic epi sodic changes. No definite filling defects are seen. CONCLUSION: There is high-grade stenosis involving bilateral A-1 and right M1 with significantly diminished flow to the right middle cerebral artery branches could be due to spasm, chronic atherosclerotic narrowing or collagen vascular diseases. Findings were discussed with Dr. Wall on 03/15/2017 at the time of this dictation. Amarjit Mcgovern MD on March 15, 2017 at 14:57 Board Certified Radiologist. This report was verified electronically.
[2017-03-16] MEDS ORDERED: LEVOTHYROXINE SODIUM 50 MCG TAB PO SCH (06:00)
--- NOTE | 2017-03-16 08:02 | MG ---
cc: DALIA DEWITT Lab No: [id number] Date: 03/15/2017 Age: Sex: F Race: Right MCA infarct, right MCA occlusion. Levaquin, CellCept. Recording shows symmetric 9 Hz 60 microvolt posterior rhythm. Recording overall is synchronous and symmetric. No epileptiform or seizure activity is noted. There were no hemisphere asymmetries. Photic stimulation was performed without significant posterior driving. Specifically no right hemisphere seizure activity is noted. She had some eye fluttering which did not correlate with any epileptiform or seizure activity. IMPRESSION Essentially normal EEG. No epileptiform or seizure activity is seen. MD RHONDA Wolfe/TLL /7:45 PM /7:54 AM
[2017-03-16] MEDS ORDERED: CYANOCOBALAMIN 1000 MCG/ML VIAL SQ SCH (09:00)
== END 2017-03-15 17:27 | disposition home or self-care (01) ==
LOC: NEPC 20:22 → NEDA 22:37 → NEPHCDU 03-15 00:29
PROVIDERS: ADMIT Hospitalist; ATTEND Hospitalist
DX: N39.0 Urinary tract infection, site not specified (principal); R41.82 Altered mental status, unspecified; I77.6 Arteritis, unspecified; L93.0 Discoid lupus erythematosus; M35.00 Sjogren syndrome, unspecified; E03.9 Hypothyroidism, unspecified; R27.9 Unspecified lack of coordination; M06.9 Rheumatoid arthritis, unspecified; F31.9 Bipolar disorder, unspecified; R00.0 Tachycardia, unspecified; E78.00 Pure hypercholesterolemia, unspecified; K21.9 Gastro-esophageal reflux disease without esophagitis; M85.80 Other specified disorders of bone density and structure, unspecified site; M79.7 Fibromyalgia; R56.9 Unspecified convulsions; Z79.899 Other long term (current) drug therapy; Z79.01 Long term (current) use of anticoagulants; G45.9 Transient cerebral ischemic attack, unspecified; I73.00 Raynaud's syndrome without gangrene; I69.354 Hemiplegia and hemiparesis following cerebral infarction affecting left non-dominant side; Z86.718 Personal history of other venous thrombosis and embolism; Z86.711 Personal history of pulmonary embolism; Z87.442 Personal history of urinary calculi; N18.3 Chronic kidney disease, stage 3 (moderate); B96.20 Unspecified Escherichia coli [E. coli] as the cause of diseases classified elsewhere; R94.31 Abnormal electrocardiogram [ECG] [EKG]; F41.9 Anxiety disorder, unspecified; Z23 Encounter for immunization
CPT/HCPCS: 70450; 70544; 70548; 70553; 71045; 80053; 81001; 82550; 82607; 84484; 85025; 85610; 85652; 85730; 86140; 87077; 87086; 87186; 90732; 93005; 95819; 96361; 96374; 96375; 97163; 99285; A9579; G0009; G0378; G8987; G8988; J2930; J7040; J7517; 90471

== ENCOUNTER 2017-04-20 12:22 | Emergency (ER) | payer MEDICARE, OTHER ==
[~2017-04-20] VITALS: Ht 157.5 cm; Wt 75.0 kg
[~2017-04-20 12:22] MED LIST changes: +CYMB30CA PO; -DULO1CAP2 PO; -HYDR-3583 PO; +LEVA500T33 PO; +PRED20 PO; +TYLETAB34 PO
[2017-04-20 12:25] VITALS: BP 99/65; PULSE 108; RESP 18; TEMP 98.2; O2SAT 97
[2017-04-20] MEDS ORDERED: PILO5 PO (12:39)
[2017-04-20] MEDS ORDERED: LIDOCAINE 1%/EPINEPHrine 1:100,000 SOLN 20 ML VIAL INFIL ONE (12:45)
[2017-04-20] MEDS ORDERED: LIDOCAINE 1%/EPINEPHrine 1:100,000 SOLN 50 ML VIAL INFIL ONE (13:00)
--- NOTE | 2017-04-20 13:15 | PD ---
HPI Chief Complaint: Laceration/Skin Injury Time Seen by Provider: 12:38 Travel History International Travel<30 days: No Contact w/Intl Traveler<30days: No Traveled to known affect area: No History of Present Illness HPI 41-year-old female that presents to the ED for evaluation of head injury. Per patient she sustained a head injury today. Patient has a chronic history CVA and left-sided weakness. She fell on the back of her head. She takes blood thinners. Per EVAC she has a laceration to the back of her head. She denies losing consciousness. From a motel pain. She states having some neck pain as well. Denies any urinary or bowel movement issues. No arm or leg pain. No new numbness, tingling, weakness. Per patient pain is 8 out of 10 minutes on the head. No blurry vision or double vision. Allergies to different medications. Patient came here by ambulance. 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 LUPUS) Bipolar Disorder: Yes Anxiety: No Depression: No Heart Rhythm Problems: Yes (TACHYCARDIA) Cancer: No Cardiovascular Problems: Yes High Cholesterol: Yes (HX OF) Chemotherapy: Yes (2 YEARS AGO) Chest Pain: No Congestive Heart Failure: No COPD: No Cerebrovascular Accident: Yes Diabetes: No Diminished Hearing: No Deep Vein Thrombosis: Yes (LLE) Endocrine: Yes Gastrointestinal Disorders: Yes GERD: Yes Genitourinary: Yes Headaches: Yes Hepatitis: No Hiatal Hernia: No Hypertension: No Immune Disorder: Yes (LUPUS) Implanted Vascular Access Dvce: Yes Kidney Stones: Yes (sees Dr Mercado) Medical other: Yes (STROKE) Musculoskeletal: Yes (FIBROMYALGIA, OSTEOPENIA) Psychiatric: No Reproductive: No Respiratory: Yes (PE) Immunizations Current: Yes Migraines: No Myocardial Infarction: No Radiation Therapy: No Renal Failure: Yes (STAGE 3 RENAL DISEASE BL) Seizures: Yes (2006) Sleep Apnea: No Thyroid Disease: Yes (HYPOTHYROIDSM ) Ulcer: No Tetanus Vaccination: < 5 Years Influenza Vaccination: Yes PNEUMOCCOCAL Vaccine (Year): 3 ?: Not Menopausal: Yes : 1 Para: 1 Tubal Ligation: Yes (2005) Past Surgical History Abdominal Surgery: Yes (APPENDECTOMY ) AICD: No Appendectomy: Yes Arteriovenous Shunt: No Body Medical Devices: [id number] Cardiac Surgery: No Section: Yes (1995) Cholecystectomy: No Ear Surgery: No Endocrine Surgery: No Eye Surgery: No Genitourinary Surgery: No Gynecologic Surgery: Yes (RIGHT OVARY REMOVAL, C SECTION) Insulin Pump: No Joint Replacement: No Neurologic Surgery: No Oral Surgery: No Pacemaker: No Thoracic Surgery: No Other Surgery: Yes (PORT PLACED AND REMOVED, new port placed 2012. ankle surgery 2016, ) Social History Alcohol Use: No Tobacco Use: No Substance Use: No Allergies-Medications (Allergen,Severity, Reaction): Coded Allergies: Sulfa (Sulfonamide Antibiotics) (Unverified Allergy, Severe, Swelling, RASH, 04/20/17) erythromycin base (Unverified Allergy, Severe, THROAT CLOSES AND RASH, ) penicillin G (Unverified Allergy, Severe, THROAT CLOSES ,SWELLING, 04/20/17 ) baclofen (Unverified Allergy, Intermediate, SLURRED SPEECH, 04/20/17) cephalexin (Unverified Adverse Reaction, Severe, WEAKNESS, 04/20/17) Reported Meds & Prescriptions Reported Meds & Active Scripts Active Xarelto (Rivaroxaban) 20 Mg Tab 20 Mg PO DAILY Cellcept (Mycophenolate Mofetil) 500 Mg Tab 500 Mg PO BID@ Synthroid (Levothyroxine Sodium) 50 Mcg Tab 50 Mcg PO MOTUWETHFRSA@06 Reported Salagen (Pilocarpine) 5 Mg Tab 5 Mg PO Q6HR Tylenol-Codeine #3 (Acetaminophen-Codeine) 300-30 mg Tab 1 Tab PO Q4H PRN Cymbalta DR (Duloxetine HCl) 30 Mg Capdr 90 Mg PO DAILY Abilify (Aripiprazole) 10 Mg Tab 5 Mg PO DAILY Citracal + D3 Maximum (Calcium Citrate-Vitamin D) 315-250 Mg-Unit Tab 1-2 Tab PO BID Lyrica (Pregabalin) 200 Mg Cap 200 Mg PO TID Pilocarpine 5 Mg Tab 5 Mg PO TID Ditropan (Oxybutynin Chloride) 5 Mg Tab 5 Mg PO TID PRN Review of Systems Except as stated in HPI: all other systems reviewed are Neg Physical Exam Narrative GENERAL: SKIN: Warm and dry. Patient has a superficial 1.5 cm to the occipital right head. Tender to touch with minimal bleeding noted. HEAD: Atraumatic. Normocephalic. EYES: Pupils equal and round 4 mm reactive to light and accommodation. No scleral icterus. No injection or drainage. ENT: No nasal bleeding or discharge. Mucous membranes pink and moist. Tongue is midline. No uvula deviation. NECK: Trachea midline. No JVD. CARDIOVASCULAR: Regular rate and rhythm. No murmurs, S3, S4. RESPIRATORY: No accessory muscle use. Clear to auscultation. Breath sounds equal bilaterally. GASTROINTESTINAL: Abdomen soft, non-tender, nondistended. Hepatic and splenic margins not palpable. MUSCULOSKELETAL: Extremities without clubbing, cyanosis, or edema. No obvious deformities. Full range of motion of the upper and lower external is bilaterally. 2+ pulses bilaterally. NEUROLOGICAL: Awake and alert. No obvious cranial nerve deficits. Motor grossly within normal limits. Five out of 5 muscle strength in the arms and legs. Normal speech. PSYCHIATRIC: Appropriate mood and affect; insight and judgment normal. Data Data Last Documented VS Vital Signs Date Time Temp Pulse Resp B/P (MAP) Pulse Ox O2 Delivery O2 Flow Rate FiO2 04/20/17 12:25 98.2 108 18 99/65 (76) [address] Brain W/O Iv Contrast(Rout) (04/20/17 12:40) Wound Care (04/20/17 12:43) Lidocai-Epi 1%-1:100,000 Inj (Xylocaine- (04/20/17 12:45) Ct Cerv Spine W/O Contrast (04/20/17 ) Lidocai-Epi 1%-1:100,000 Inj (Xylocaine- (04/20/17 13:00) MDM Medical Decision Making Medical Screen Exam Complete: Yes Emergency Medical Condition: Yes Medical Record Reviewed: Yes Interpretation(s) CT head negative for acute disease CT cervical spine negative for acute disease Differential Diagnosis Head injury versus fracture versus ICH versus laceration versus abrasion Narrative Course 41-year-old female that presents to the ED for evaluation of head injury. Patient was properly examined and was found to have signs and symptoms consistent with appears to be head injury. CT of the head was ordered. Patient is neurovascular intact. After explained procedure to the patient and she agreed to it laceration was repaired as stated in procedure note. Patient was told to get brandy removed in 7-[address] of the head was negative for acute disease. Patient was told to follow up with PCP. See ED worsening symptoms. Procedures Procedure Narrative LACERATION LOCATION: right occipital head LENGTH: 1.5 cm NUMBER OF STITCHES/BRANDY: 4 brandy REPAIR: The area of the laceration was prepped with Betadine and sterilely draped. The laceration was infiltrated with 1% Xylocaine. The wound was copiously irrigated and explored without evidence of foreign body, tendon injury or neurovascular injury. The wound was closed using sterile stapler. This was a 1 layer repair. A sterile dressing was applied. The patient was advised to keep the dressing clean and dry. Patient tolerated the procedure well. Diagnosis Primary Impression: Head injury, acute Qualified Codes: S09.90XA - Unspecified injury of head, initial encounter Additional Impression: Laceration of head Qualified Codes: S01.01XA - Laceration without foreign body of scalp, initial encounter Patient Instructions: General Instructions Additional Instructions: Wound care daily with soap and water. You can apply bandaid if needed. Neosporyn or OTC antibiotic ointment to area as needed twice a day for at least 2 weeks to help with scarring and prevent infection. Meoderma OTC for scarring if needed. Avoid sun exposure for 2 months as the sun could make scar darker and more noticeable. Get sutures removed in 7 days. See ED if worst. Med/Other Pt SpecificInfo: No Change to Meds Disposition: 01 DISCHARGE HOME Condition: Stable Frantz Alas Apr 20, 2017 13:15
--- NOTE | 2017-04-20 13:35 | RADRPT ---
EXAM DATE/TIME: 04/20/2017 13:12 [facility] COMPARISON: CT BRAIN W/O CONTRAST, March 14, 2017, 20:58. INDICATIONS : Fall. Laceration to the back of head. RADIATION DOSE: 59.23 CTDIvol (mGy) MEDICAL HISTORY : Lupus. Renal insufficiency, chronic. Cerebrovascular disease. Anticoagulant therapy. SURGICAL HISTORY : IVC Filter placement. Appendectomy. Tubal ligation. Right shoulder ENCOUNTER: Initial ACUITY: 2 days PAIN SCALE: 5/10 LOCATION: occipital TECHNIQUE: Multiple contiguous axial images were obtained of the head. Using automated exposure control and adj ustment of the mA and/or kV according to patient size, radiation dose was kept as low as reasonably a chievable to obtain optimal diagnostic quality images. DICOM format image data is available electro nically for review and comparison. FINDINGS: Old infarct is seen or congenital encephalomalacic changes in the right axillary region with dilatati on of the right lateral ventricle. The left hemisphere is unremarkable. Posterior fossa appears normal Orbits and sinuses are unremarkable. There is no parenchymal hemorrhage, acute infarction or mass lesion. . CONCLUSION: Stable CT scan of the brain. I don't see skull fracture or parenchymal hemorrhage. Israel Guzman MD FACR on April 20, 2017 at 13:32 Board Certified Radiologist. This report was verified electronically.
--- NOTE | 2017-04-20 13:45 | RADRPT ---
EXAM DATE/TIME: 04/20/2017 13:12 [facility] COMPARISON: No previous studies available for comparison. INDICATIONS : Fall. Head and neck pain. RADIATION DOSE: 26.57 CTDIvol (mGy) MEDICAL HISTORY : Lupus. Renal insufficiency, chronic. Cerebrovascular disease. Anticoagulant therapy. SURGICAL HISTORY : IVC Filter placement. Appendectomy. Tubal ligation. Right shoulder ENCOUNTER: Initial ACUITY: 2 days PAIN SCALE: 5/10 LOCATION: neck TECHNIQUE: Volumetric scanning of the cervical spine was performed. Multiplanar reconstructions in the sagittal, coronal and oblique axial planes were performed. Using automated exposure control and adjustment o f the mA and/or kV according to patient size, radiation dose was kept as low as reasonably achievable to obtain optimal diagnostic quality images. DICOM format image data is available electronically f or review and comparison. FINDINGS: VERTEBRAE: Normal vertebral body height. ALIGNMENT: No evidence of subluxation. C2-C3: The bony spinal canal is normal in size. No evidence of disc bulge or herniation. The neural forami na are bilaterally patent. C3-C4: The bony spinal canal is normal in size. No evidence of disc bulge or herniation. The neural forami na are bilaterally patent. C4-C5: The bony spinal canal is normal in size. No evidence of disc bulge or herniation. The neural forami na are bilaterally patent. C5-C6: The bony spinal canal is normal in size. No evidence of disc bulge or herniation. The neural forami na are bilaterally patent. C6-C7: The bony spinal canal is normal in size. No evidence of disc bulge or herniation. The neural forami na are bilaterally patent. C7-T1: The bony spinal canal is normal in size. No evidence of disc bulge or herniation. The neural forami na are bilaterally patent. CONCLUSION: Negative for fracture or degenerative changes. Israel Guzman MD FACR on April 20, 2017 at 13:43 Board Certified Radiologist. This report was verified electronically.
[2017-04-20] MEDS ORDERED: ACETAMINOPHEN/HYDROcodone 325 MG/5 MG TAB PO ONE (14:00)
== END 2017-04-20 15:05 | disposition home or self-care (01) ==
LOC: PHEFT 12:22
DX: S01.01XA Laceration without foreign body of scalp, initial encounter (principal); E03.9 Hypothyroidism, unspecified; M32.9 Systemic lupus erythematosus, unspecified; W19.XXXA Unspecified fall, initial encounter
CPT/HCPCS: 12001; 70450; 72125